=== PATIENT | female | born 1980 | race Caucasian/White ===

== ENCOUNTER 2017-02-21 12:06 | Observation (INO) | payer OTHER ==
[2017-02-21] MEDS ORDERED: Famotidine 20 MG/2 ML SDV IVPUSH ONE (12:10)
[2017-02-21] MEDS ORDERED: Ticagrelor 90 MG Tab PO ONE (12:10)
[2017-02-21] MEDS ORDERED: Aspirin 81 MG Tab.Chew CHEW ONE (12:10)
--- NOTE | 2017-02-21 12:10 | EDM.PDOC ---
ED HPI GENERAL MEDICAL PROBLEM - General Chief Complaint: Chest Pain Stated Complaint: chest pain Time Seen by Provider: 02/21/17 12:10 Source of Information: Reports: Patient, Family (), Old Records ([facility] chart/EMR) History Limitations: Reports: No Limitations - History of Present Illness INITIAL COMMENTS - FREE TEXT/NARRATIVE: The patient was brought to the emergency room via private automobile by her coworker for evaluation of sudden onset nonspecific 7/10 retrosternal chest pressure and burning associated with some mild dizziness, blurred vision, diaphoresis, and heart flutter with no medications taken to this point. Possible radiation of her chest discomfort to her cervical region bilaterally with patient also thinking that she may be having some heartburn. She has not had these symptoms in the past with no medications taken to this point for the symptoms, although she did take her morning medications today. Her GERD has been stable in recent weeks. No previous cardiac history including arrhythmia with patient not using any recent OTC cold or allergy preparations with no significant recent caffeine use as below. The patient denies any dizziness, orthostasis, orthopnea, paresthesias, recent decreased exercise tolerance, or any other anginal-type symptoms. No recent history of other abdominal pain, heartburn, nausea, diarrhea, melena, gross hematochezia, or any food intolerance , including fatty foods, etc. with normal bowel movement yesterday. The patient also denies any recent fever, cough, wheezing, dyspnea, etc.. She denies any recent medication noncompliance. The patient was at work essentially at rest when the above symptoms started with apparent similar type symptoms about one week ago lasting for about one hour. No history of recent headaches, other visual changes, diplopia, change in mental status, or other change in neurological status. Onset: Today, Sudden Onset Date: 02/21/17 Onset Time: 15:00 Duration: Constant Location: Reports: Neck, Chest, Abdomen, Radiates to (As above). Denies: Head, Face, Back, Pelvis, Upper Extremity, Left, Upper Extremity, Right Quality: Reports: Burning, Pressure Severity: Moderate Improves with: Reports: None Worsens with: Reports: None Context: Reports: Other (As above) Associated Symptoms: Reports: Chest Pain, Diaphoresis. 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 Denies: Cataract, Glaucoma, Hard of Hearing, Impaired Vision, Macular Degeneration, Retinal Detachment Cardiovascular History: Reports: High Cholesterol, Hypertension, Other (See Below). Denies: Afib, Aneurysm, Arrhythmia, Blood Clots/VTE/DVT, CAD, Heart Failure, Heart Murmur, [place], Syncope Other Cardiovascular History: Hyperlipidemia not currently under therapy Respiratory History: Reports: None. Denies: Asthma, Bronchitis, Recurrent, COPD , Intubation, Previous, PE, Pneumothorax, Sleep Apnea, TB Gastrointestinal History: Reports: None, GERD. Denies: Celiac Disease, Cholelithiasis, Chronic Constipation, Chronic Diarrhea, Gastritis, GI Bleed, Hemorrhoids, Hepatitis, Hiatal Hernia, Inflammatory Bowel Disease, Irritable Bowel Syndrome, Jaundice, Pancreatitis, PUD Genitourinary History: Reports: None. 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 Denies: Endometriosis , Fibroids, , Spontaneous : 0 LMP (Approximate): 1 Week Musculoskeletal History: Reports: None, Arthritis, Back Pain, Chronic, Osteoarthritis. Denies: Amputation, Fracture, Gout, Neck Pain, Chronic, RA, SLE Neurological History: Reports: None. Denies: Cerebral Aneurysms, Concussion, CVA, Headaches, Chronic, Head Trauma, Migraines, MS, Neuropathy, Diabetic, Neuropathy, Peripheral, Parkinson's, Seizure, TIA Psychiatric History: Reports: Anxiety, Depression, Other (See Below). Denies: Abuse, Victim of, ADD, ADHD, Addiction, Panic Attack, Psych Hospitalization(s), PTSD, Suicide Attempt, Suicidal Ideation Other Psychiatric History: Anxiety depression disorder not currently under therapy Endocrine/Metabolic History: Reports: Obesity/BMI 30+. Denies: Diabetes, Type I , Diabetes, Type II, Hypothyroidism, IDDM Hematologic History: Reports: None. Denies: Anemia, B12 Deficiency, Blood Transfusion(s), Iron Deficiency Immunologic History: Reports: None. Denies: AIDS, HIV, SLE Oncologic (Cancer) History: Reports: None. Denies: Basal Cell Carcinoma, Cervix , Hodgkin's Lymphoma, Leukemia, Lymphoma, Malignant Melanoma, Non-Hodgkin's Lymphoma, Squamous Cell Carcinoma Dermatologic History: Reports: None. Denies: Eczema, Psoriasis - Infectious Disease History Infectious Disease History: Reports: Chicken Pox. Denies: C-Difficile, Measles , Meningitis, Mononucleosis, MRSA, Mumps, Pertussis (Whooping Cough), Rubella, Scarlet Fever, Shingles, TB, VRE - Past Surgical History Head Surgeries/Procedures: Reports: None HEENT Surgical History: Reports: Oral Surgery, Other (See Below). Denies: Adenoidectomy, Eye Surgery, Laser Surgery, LASIK, Myringotomy w Tube(s), Naso- Sinus Surgery, Tonsillectomy Other HEENT Surgeries/Procedures: [place] teeth extraction x4 at age 8 Cardiovascular Surgical History: Reports: None. Denies: Varicose, Vascular Surgery Respiratory Surgical History: Reports: None. Denies: Lung Biopsies, Thoracentesis GI Surgical History: Reports: None. Denies: Appendectomy, Cholecystectomy, Colonoscopy, EGD, Hernia, Inguinal, Hernia Repair/Other Female Surgical History: Reports: None. Denies: Breast Biopsy, D&C, Hysterectomy, Tubal Ligation Endocrine Surgical History: Reports: None. Denies: Thyroid Biopsy Neurological Surgical History: Reports: None. Denies: C-Spine, Discectomy, Intracranial, Laminectomy, Lumbar Spine, Spinal Fusion, Vertebroplasty Musculoskeletal Surgical History: Reports: None. Denies: Arthroscopic Procedure , Carpal Tunnel, Ganglion Cyst, Joint Replacement, ORIF, Shoulder Surgery Oncologic Surgical History: Reports: None Dermatological Surgical History: Reports: None - Past Imaging History Past Imaging History: Reports: None. Denies: Cardiac Echo, Stress Testing Social & Family History - Family History HEENT: Reports: None. Denies: Allergic Rhinitis, Glaucoma, Macular Degeneration , Retinal Detachment Cardiac: Reports: Hypertension, Other (See Below). Denies: Afib, Aneurysm, Arrhythmia, Blood Clots/VTE/DVT, CAD, Heart Failure, Heart Murmur, High Cholesterol, [place], Pacemaker, PVD/COD, Syncope Other Cardiac Family History: Parents with hypertension Respiratory: Denies: Asthma, COPD, PE, Pneumothorax, Sleep Apnea GI: Reports: GERD, Other (See Below). Denies: Celiac Disease, Cholelithiasis, Colon Polyps, GI bleed, Inflammatory Bowel Disease, Irritable Bowel Syndrome, PUD Other GI Family History: Father with GERD : Reports: None. Denies: Dialysis, Renal Calculus, Renal Disease/ Insufficiency OBGYN: Reports: None. Denies: Dysfunctional uterine bleeding, Endometriosis, Recurrent Spontaneous Musculoskeletal: Reports: None. Denies: Arthritis, Gout, Osteoarthritis, RA Neurological: Reports: CVA, Other (See Below). Denies: Alzheimers Disease, Cerebral Aneurysms, Dementia, Migraines, MS, Parkinson's, Seizure, TIA Other Neurological Family History: Mother with small CVA in her 50s Psychiatric: Denies: Abuse, Victim of, ADD, ADHD, Anxiety, Depression, Psych Hospitalization(s), Psychosis, PTSD, Suicide Attempt Endocrine/Metabolic: Reports: Diabetes, type II, Hypothyroidism, Other (See Below). Denies: Diabetes, Type I, IDDM Other Endocrine/Metabolic Family History: Paternal grandmother with AODM, mother with hypothyroidism Hematologic: Reports: None. Denies: Anemia, Transfusion Reaction Immunologic: Reports: None. Denies: AIDS, HIV, SLE Dermatologic: Reports: None. Denies: Eczema, Psoriasis Oncologic: Reports: Lymphoma, Other (See Below). Denies: Breast, Cervix, Colon , Hodgkin's Lymphoma, Leukemia, Metastatic, Thyroid, Uterine Other Oncologic Family History: Mother with lymphoma in her 60s - Tobacco Use Smoking Status *Q: Never Smoker Smoking Cessation Information Provided To Patient: No Second Hand Smoke Exposure: No Second Hand Smoke Education Provided: No - Caffeine Use Caffeine Use: Reports: Soda (One soda per day). Denies: Coffee, Energy Drinks, Tea - Alcohol Use Alcohol Use History: Yes Days Per Week of Alcohol Use: 3 (No previous DWIs, problems with alcohol abuse, etc.) Number of Drinks Per Day: 6 (Usually beer) Total Drinks Per Week: 18 Date of Last Drink: 02/20/17 Alcohol Use in Last Twelve Months: Yes Alcohol Use Frequency: Socially - Recreational Drug Use Recreational Drug Use: No Drug Use in Last 12 Months: No Recreational Drug Type: Denies: Amphetamines (Speed), Cocaine, Heroin, Inhalants (Glues, Solvents, Aerosols), LSD (Acid), Marijuana/Hashish, Methamphetamine, Morphine - Sexual History Sexual History: Reports: Sexually Active - Living Situation & Occupation Living situation: Reports: (2006), with Family () 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 Denies: Fever, Chills, Night Sweats, Decreased Appetite, Weight Loss, Weight Gain HEENT: Reports: Vision Change. Denies: Contact Lenses, Dental Pain, Ear Discharge, Ear Pain, Glasses, Nosebleed, Vertigo Respiratory: Reports: No Symptoms. Denies: Shortness of Breath, Pleuritic Chest Pain, Cough Cardiovascular: Reports: Chest Pain, Blood Pressure Problem (Blood pressure 86/ 59 prior to arrival by her history with blood pressure taken at the pharmacy), Lightheadedness, Palpitations. Denies: Claudication, Dyspnea on Exertion, Edema , Orthopnea, PND, Syncope Endocrine: Reports: No Symptoms. Denies: Fatigue GI/Abdominal: Reports: Abdominal Pain (Possible heartburn). Denies: Anorexia, Black Stool, Bloody Stool, Constipation, Diarrhea, Decreased Appetite, Difficulty Swallowing, Distension, Flatus, Hematochezia, Melena, Nausea, Stool Incontinence, Vomiting : Reports: No Symptoms. Denies: Discharge, Dysuria, Flank Pain, Frequency, Hematuria, Incontinence, Irregular Menses, Pain, Urgency, Urinary Retention Musculoskeletal: Reports: Neck Pain (Possible as above). Denies: Shoulder Pain , Arm Pain, Back Pain, Leg Pain Skin: Reports: Diaphoresis. Denies: Pruritis, Rash, Wound Neurological: Reports: Dizziness. Denies: Confusion, Headache, Numbness, Paresthesia, Pre-Existing Deficit, Seizure, Syncope, Tingling, Tremors, Trouble Speaking, Difficulty Walking, Weakness, Gait Disturbance Psychiatric: Reports: No Symptoms. Denies: Agitation, Anxiety, Confusion, Depression, Hallucinations Hematologic/Lymphatic: Reports: No Symptoms Immunologic: Reports: No Symptoms ED EXAM, GENERAL - Physical Exam Exam: See Below Exam Limited By: No Limitations General Appearance: Alert, WD/WN, No Apparent Distress Eye Exam: Bilateral Eye: EOMI, Normal Inspection (No nystagmus), PERRL Ears: Normal External Exam, Normal Canal, Hearing Grossly Normal, Normal TMs Nose: Normal Inspection, Normal Mucosa, No Blood. No: Clear Rhinorrhea Throat/Mouth: Normal Inspection, Normal Lips, Normal Teeth, Normal Gums, Normal Oropharynx, Normal Voice, No Airway Compromise. No: Dysphagia Head: Atraumatic, Normocephalic. No: Facial Swelling, Facial Tenderness, Sinus Tenderness Neck: Normal Inspection, Supple, Non-Tender, Full Range of Motion. No: Carotid Bruit, Lymphadenopathy (L), Lymphadenopathy (R), Thyromegaly Respiratory/Chest: No Respiratory Distress, Lungs Clear, Normal Breath Sounds, No Accessory Muscle Use, Chest Non-Tender. No: Pleural Rub, Retractions Cardiovascular: No Edema, No Gallop, No JVD, No Murmur, No Rub, Tachycardia ( Regular rhythm). No: Gallop/S3, Gallop/S4, Friction Rub Peripheral Pulses: 2+: Radial (L), Radial (R), Dorsalis Pedis (L), Dorsalis Pedis (R) GI/Abdominal: Normal Bowel Sounds, Soft, Non-Tender, No Organomegaly, No Distention, No Abnormal Bruit, No Mass, Pelvis Stable, Other (obese). No: Guarding (Female) Exam: Deferred Rectal (Female) Exam: Heme - Stool Back Exam: Normal Inspection, Full Range of Motion. No: CVA Tenderness (L), CVA Tenderness (R), Muscle Spasm Extremities: Normal Inspection, Normal Range of Motion, Non-Tender, Normal Capillary Refill, Pedal Edema (Trace bilateral pedal/pretibial edema). No: Kristy's Sign Neurological: Alert, Oriented, CN II-XII Intact, Normal Cognition, Normal Gait, Normal Reflexes (Negative Babinski's), No Motor/Sensory Deficits Psychiatric: Normal Affect, Normal Mood Skin Exam: Warm, Dry, Intact, Normal Color, No Rash. No: Diaphoretic, Wound/ Incision Lymphatic: No Adenopathy EKG INTERPRETATION EKG Date: 02/21/17 Time: 12:39 Rhythm: other (Sinus tachycardia after IV therapy as below) Rate (beats/min): 125 [place]: normal (Left cardiac) P-wave: present QRS: normal (QRS interval of 0.08 seconds representing repolarization changes) ST-T: normal QT: normal CT/PQ Interval: 0.16 seconds with extreme poor R-wave progression in the anterior leads Comparison: NA - no prior EKG EKG Interpretation Comments: 1. No acute ischemic changes 2. Repolarization changes Course - Vital Signs Last Recorded V/S: Last Vital Signs Temp 36.2 C 02/21/17 12:56 Pulse 125 H 02/21/17 13:26 Resp 20 02/21/17 13:26 BP 114/69 02/21/17 13:26 Pulse Ox 100 02/21/17 13:26 Vital Signs - 24 hr 02/21/17 02/21/17 02/21/17 12:10 12:12 12:30 Temperature [ 36.3 C 36.3 C Oral] Pulse, Peripheral Pulse, 193 H 190 H 123 H Peripheral [ Right Pulse Oximetry] Respiratory 20 24 H Rate Blood Pressure Blood Pressure 81/38 L 81/38 L 81/52 L [Right Upper Arm] O2 Sat by Pulse 100 100 Oximetry O2 Sat by Pulse 100 Oximetry [ Nasal Cannula] 02/21/17 02/21/17 02/21/17 12:36 12:38 12:40 Temperature [ Oral] Pulse, 125 H Peripheral Pulse, 127 H 126 H Peripheral [ Right Pulse Oximetry] Respiratory 26 H Rate Blood Pressure 81/52 L Blood Pressure 100/77 113/69 [Right Upper Arm] O2 Sat by Pulse 100 Oximetry O2 Sat by Pulse Oximetry [ Nasal Cannula] 02/21/17 02/21/17 02/21/17 12:56 13:10 13:26 Temperature [ 36.2 C Oral] Pulse, Peripheral Pulse, 128 H 128 H 125 H Peripheral [ Right Pulse Oximetry] Respiratory 24 H 20 20 Rate Blood Pressure Blood Pressure 93/73 106/84 114/69 [Right Upper Arm] O2 Sat by Pulse 100 100 100 Oximetry O2 Sat by Pulse Oximetry [ Nasal Cannula] - Orders/Labs/Meds Orders: Active Orders 24 hr Category Date Time Status Cardiac Monitoring [RC] . DIRECTED Care 02/21/17 12:10 Active EKG Documentation Completion [RC] ASDIRECTED Care 02/21/17 12:10 Active Oxygen Therapy, ED [RC] CONTINUOUS Care 02/21/17 12:10 Active Pulse Oximetry [RC] CONTINUOUS Care 02/21/17 12:10 Active Up With Assistance [RC] PFP Care 02/21/17 12:10 Active Vital Signs [RC] PFP Care 02/21/17 12:10 Active Nothing per Oral Now Diet [DIET] Diet 02/21/17 Breakfast Active Chest 1V Frontal [CR] Stat Exams 02/21/17 12:10 Taken H PYLORI STOOL ANTIGEN [MREF] Stat Lab 02/21/17 12:10 Uncollected Sodium Chloride 0.9% [Saline Flush] Med 02/21/17 12:10 Active 10 ml FLUSH ASDIRECTED PRN Obtain Past Medical Record [OM.PC] Urgent Oth 02/21/17 12:10 Active Peripheral IV Insertion Adult [OM.PC] Stat Oth 02/21/17 12:10 Ordered Resuscitation Status Stat Resus Stat 02/21/17 12:10 Ordered Medication Orders Sodium Chloride (Saline Flush) 10 ml FLUSH ASDIRECTED PRN PRN Reason: Keep Vein Open Last Admin: 02/21/17 13:11 Dose: 10 ml Admin: 02/21/17 12:32 Dose: 10 ml Labs: Laboratory Tests 02/21/17 02/21/17 02/21/17 Range/Units 12:20 12:20 12:20 WBC 7.3 (4.0-10.2) K/uL RBC 4.35 (3.77-5.09) M/uL Hgb 13.7 (11.7-15.5) g/dL Hct 42.9 (34.0-46.0) % MCV 98.6 H (84.0-98.0) fL MCH 31.5 (28.2-33.3) pg MCHC 31.9 (31.7-36.0) g/dL RDW 12.3 (11.2-14.1) % Plt Count 252 (150-350) K/uL Neut % (Auto) 63.8 (45.0-80.0) % Lymph % (Auto) 28.6 (10.0-50.0) % [place] % (Auto) 5.8 (2.0-14.0) % Eos % (Auto) 1.1 (0.0-5.0) % Baso % (Auto) 0.7 (0.0-2.0) % Neut # (Auto) 4.65 (1.40-7.00) K/uL Lymph # (Auto) 2.08 (0.50-3.50) K/uL [place] # (Auto) 0.42 (0.00-1.00) K/uL Eos # (Auto) 0.08 (0.00-0.50) K/uL Baso # (Auto) 0.05 (0.00-0.20) K/uL PT 10.7 (9.8-11.7) SEC INR 1.0 APTT 28.2 (23.5-30.0) SEC D-Dimer, Quantitative 171 (0-400) ng/mL Sodium (136-145) mmol/L Potassium (3.5-5.1) mmol/L Chloride (98-107) mmol/L Carbon Dioxide (21.0-32.0) mmol/L BUN (7-18) mg/dL Creatinine (0.51-1.17) mg/dL Est Cr Clr Drug Dosing mL/min Estimated GFR (MDRD) mL/min Glucose (74-106) mg/dL Lactic Acid (0.4-2.0) mmol/L Uric Acid (2.6-7.2) mg/dL Calcium (8.5-10.1) mg/dL Magnesium (1.8-2.4) mg/dL Total Bilirubin (0.2-1.0) mg/dL AST (15-37) U/L ALT (12-78) U/L Alkaline Phosphatase (46-116) IU/L Creatine Kinase (26-308) U/L Creatine Kinase Index (0.0-2.5) % CK-MB (CK-2) (0.00-3.60) ng/mL Troponin I (0.000-0.056) ng/mL [id number] Pept (0-125) pg/mL Total Protein (6.4-8.2) g/dL Albumin (3.4-5.0) g/dL TSH, Ultra Sensitive (0.358-3.740) mIU/mL HCG, Qual (NEGATIVE) 02/21/17 02/21/17 02/21/17 Range/Units 12:20 12:20 12:20 WBC (4.0-10.2) K/uL RBC (3.77-5.09) M/uL Hgb (11.7-15.5) g/dL Hct (34.0-46.0) % MCV (84.0-98.0) fL MCH (28.2-33.3) pg MCHC (31.7-36.0) g/dL RDW (11.2-14.1) % Plt Count (150-350) K/uL Neut % (Auto) (45.0-80.0) % Lymph % (Auto) (10.0-50.0) % [place] % (Auto) (2.0-14.0) % Eos % (Auto) (0.0-5.0) % Baso % (Auto) (0.0-2.0) % Neut # (Auto) (1.40-7.00) K/uL Lymph # (Auto) (0.50-3.50) K/uL [place] # (Auto) (0.00-1.00) K/uL Eos # (Auto) (0.00-0.50) K/uL Baso # (Auto) (0.00-0.20) K/uL PT (9.8-11.7) SEC INR APTT (23.5-30.0) SEC D-Dimer, Quantitative (0-400) ng/mL Sodium 140 (136-145) mmol/L Potassium 4.7 (3.5-5.1) mmol/L Chloride 104 (98-107) mmol/L Carbon Dioxide 24.5 (21.0-32.0) mmol/L BUN 18 (7-18) mg/dL Creatinine 1.16 (0.51-1.17) mg/dL Est Cr Clr Drug Dosing 59.17 mL/min Estimated GFR (MDRD) 52 mL/min Glucose 126 H (74-106) mg/dL Lactic Acid 3.3 H (0.4-2.0) mmol/L Uric Acid 6.7 (2.6-7.2) mg/dL Calcium 9.4 (8.5-10.1) mg/dL Magnesium 2.0 (1.8-2.4) mg/dL Total Bilirubin 0.3 (0.2-1.0) mg/dL AST 17 (15-37) U/L ALT 32 (12-78) U/L Alkaline Phosphatase 94 (46-116) IU/L Creatine Kinase 51 (26-308) U/L Creatine Kinase Index 1.4 (0.0-2.5) % CK-MB (CK-2) 0.70 (0.00-3.60) ng/mL Troponin I 0.000 (0.000-0.056) ng/mL [id number]-Nwngcbfojsl Pept 35 (0-125) pg/mL Total Protein 7.3 (6.4-8.2) g/dL Albumin 4.3 (3.4-5.0) g/dL TSH, Ultra Sensitive 4.449 H (0.358-3.740) mIU/mL HCG, Qual Negative (NEGATIVE) Meds: Medications Generic Name Dose Route Start Last Admin Trade Name Freq PRN Reason Stop Dose Admin Sodium Chloride 10 ml 02/21/17 12:10 02/21/17 13:11 Saline Flush FLUSH 10 ml ASDIRECTED PRN Administration Keep Vein Open Discontinued Medications Generic Name Dose Route Start Last Admin Trade Name Freq PRN Reason Stop Dose Admin Aspirin 324 mg 02/21/17 12:10 02/21/17 12:18 Aspirin CHEW 02/21/17 12:11 324 mg ONETIME ONE Administration Diltiazem HCl 10 mg 02/21/17 12:11 02/21/17 12:22 Diltiazem IVPUSH 02/21/17 12:12 10 mg ONETIME ONE Administration Diltiazem HCl 10 mg 02/21/17 12:29 02/21/17 12:32 Diltiazem IVPUSH 02/21/17 12:30 10 mg ONETIME ONE Administration Diltiazem HCl 120 mg 02/21/17 12:29 02/21/17 12:36 Cardizem Cd PO 02/21/17 12:30 120 mg ONETIME ONE Administration Diltiazem HCl 15 mg 02/21/17 13:03 02/21/17 13:10 Diltiazem IVPUSH 02/21/17 13:04 15 mg ONETIME ONE Administration Famotidine 40 mg 02/21/17 12:10 02/21/17 12:20 Pepcid IVPUSH 02/21/17 12:11 40 mg ONETIME ONE Administration Ticagrelor 180 mg 02/21/17 12:10 02/21/17 12:20 Brilinta PO 02/21/17 12:11 180 mg ONETIME ONE Administration - Radiology Interpretation Free Text/Narrative:: awake overnight monitor showed PSVT with heart rate in the 190s prior to treatment as below with conversion to sinus rhythm with persistent sinus tachycardia in the 120s at time of admission. No extrasystoles or other arrhythmia noted Chest x-ray, portable, shows a poor inspiratory film with possible borderline pulmonary obstructive changes and pulmonary hypertension versus mild centralized CHF. No significant pulmonary infiltrates, cardiomegaly, pneumothorax, etc. Departure - Departure Time of Disposition: 13:55 Disposition: Refer to Observation Condition: good Clinical Impression: PSVT (paroxysmal supraventricular tachycardia), Peptic reflux disease, Hyperglycemia, Lactic acid blood increased, Mixed anxiety depressive disorder Hypertension Qualifiers: Hypertension type: essential hypertension Qualified Code(s): I10 - Essential ( primary) hypertension Hyperlipidemia Qualifiers: Hyperlipidemia type: unspecified Qualified Code(s): E78.5 - Hyperlipidemia, unspecified Hypothyroidism Qualifiers: Hypothyroidism type: acquired Qualified Code(s): E03.9 - Hypothyroidism, unspecified Osteoarthritis Qualifiers: Osteoarthritis location: multiple joints Osteoarthritis type: primary Qualified Code(s): M15.0 - Primary generalized (osteo)arthritis - Problem List & Annotations (1) PSVT (paroxysmal supraventricular tachycardia) SNOMED Code(s): 81247250 Code(s): I47.1 - SUPRAVENTRICULAR TACHYCARDIA Status: Acute Priority: High Current Visit: Yes Onset Date: 02/21/17 Annotation/Comment:: Chest pain protocol initiated upon patient's arrival to the emergency room. Secondary to her significant hypotension low-dose loading regimens of IV diltiazem were given with improvement prior to admission as above. Initiate standard rule out [place] orders with cardiology consultation depending on her clinical course. Probable echocardiogram prior to discharge with recommended Cardiolite stress test on an outpatient basis after discharge (2) Hyperglycemia SNOMED Code(s): 97250736 Code(s): R73.9 - HYPERGLYCEMIA, UNSPECIFIED Status: Acute Priority: Medium Current Visit: Yes Onset Date: 02/21/17 Annotation/Comment:: Glycosylated hemoglobin with next set of blood work (3) Hyperlipidemia SNOMED Code(s): 92854341 Code(s): E78.5 - HYPERLIPIDEMIA, UNSPECIFIED Status: Chronic Priority: Medium Current Visit: Yes Annotation/Comment:: Not currently under therapy with lipid panel in the a.m.. Qualifiers: Hyperlipidemia type: unspecified Qualified Code(s): E78.5 - Hyperlipidemia , unspecified (4) Hypertension SNOMED Code(s): 22291463 Code(s): I10 - ESSENTIAL (PRIMARY) HYPERTENSION Status: Acute Priority: High Current Visit: Yes Annotation/Comment:: History of hypertension under good control recently by her history, although note significant hypotension on arrival secondary to her tachycardia as above. Improved blood pressures prior to admission as above Qualifiers: Hypertension type: essential hypertension Qualified Code(s): I10 - Essential (primary) hypertension (5) Hypothyroidism SNOMED Code(s): 77649640 Code(s): E03.9 - HYPOTHYROIDISM, UNSPECIFIED Status: Acute Priority: Medium Current Visit: Yes Onset Date: 02/21/17 Annotation/Comment:: Mild TSH elevation. Consider Synthroid supplementation at discharge Qualifiers: Hypothyroidism type: acquired Qualified Code(s): E03.9 - Hypothyroidism, unspecified (6) Lactic acid blood increased SNOMED Code(s): 3716519 Code(s): R79.89 - OTHER SPECIFIED ABNORMAL FINDINGS OF BLOOD CHEMISTRY Status: Acute Priority: High Current Visit: Yes Onset Date: 02/21/17 Annotation/Comment:: Repeat lactic acid level with next set of blood work and also in the a.m.. No direct evidence of significant acidosis, sepsis, etc. (7) Mixed anxiety depressive disorder SNOMED Code(s): 271078273 Code(s): F41.8 - OTHER SPECIFIED ANXIETY DISORDERS Status: Chronic Priority: Medium Current Visit: Yes Annotation/Comment:: Stable by history with no current medical therapy. Continue to observe closely by her regular provider, Shane Abbott PA-C, at the [facility] in [place], (8) Osteoarthritis SNOMED Code(s): 180146067 Code(s): M19.90 - UNSPECIFIED OSTEOARTHRITIS, UNSPECIFIED SITE Status: Chronic Priority: Medium Current Visit: Yes Annotation/Comment:: Stable by history Qualifiers: Osteoarthritis location: multiple joints Osteoarthritis type: primary Qualified Code(s): M15.0 - Primary generalized (osteo)arthritis (9) Peptic reflux disease SNOMED Code(s): 08181271 Code(s): K21.9 - GASTRO-ESOPHAGEAL REFLUX DISEASE WITHOUT ESOPHAGITIS Status: Chronic Priority: Medium Current Visit: Yes Annotation/Comment:: Stable by history with patient given high-dose IV Pepcid as GI prophylaxis - Problem List Review Problem List Initiated/Reviewed/Updated: Yes - My Orders Last 24 Hours: My Active Orders 02/21/17 12:10 Cardiac Monitoring [RC] . DIRECTED EKG Documentation Completion [RC] ASDIRECTED Oxygen Therapy, ED [RC] CONTINUOUS Pulse Oximetry [RC] CONTINUOUS Up With Assistance [RC] PFP Vital Signs [RC] PFP Chest 1V Frontal [CR] Stat H PYLORI STOOL ANTIGEN [MREF] Stat Sodium Chloride 0.9% [Saline Flush] 10 ml FLUSH ASDIRECTED PRN Obtain Past Medical Record [OM.PC] Urgent Peripheral IV Insertion Adult [OM.PC] Stat Resuscitation Status Stat 02/21/17 Breakfast Nothing per Oral Now Diet [DIET] - Assessment/Plan Admission H&P: Please use this note as an admission H&P Last 24 Hours: My Active Orders 02/21/17 12:10 Cardiac Monitoring [RC] . DIRECTED EKG Documentation Completion [RC] ASDIRECTED Oxygen Therapy, ED [RC] CONTINUOUS Pulse Oximetry [RC] CONTINUOUS Up With Assistance [RC] PFP Vital Signs [RC] PFP Chest 1V Frontal [CR] Stat H PYLORI STOOL ANTIGEN [MREF] Stat Sodium Chloride 0.9% [Saline Flush] 10 ml FLUSH ASDIRECTED PRN Obtain Past Medical Record [OM.PC] Urgent Peripheral IV Insertion Adult [OM.PC] Stat Resuscitation Status Stat 02/21/17 Breakfast Nothing per Oral Now Diet [DIET] Assessment:: As above Plan: As above. Extensive precautions were given to the patient and her , who are in agreement with the treatment plan. The patient's condition is stable enough for observation status and general supervision.
[2017-02-21] MEDS ORDERED: Diltiazem 25 MG/5 ML SDV IVPUSH ONE ×3 (12:11→13:03)
[2017-02-21] MEDS ORDERED: Diltiazem 120 MG Cap.CD PO ONE (12:29)
[2017-02-21] MEDS: Sodium Chloride 0.9% 10 ML Syringe FLUSH PRN ×2 (12:32→13:11)
[2017-02-21] MEDS ORDERED: Temazepam 15 MG Cap PO PRN (14:00)
[2017-02-21] MEDS ORDERED: Sodium Chloride 0.9% 10 ML Syringe FLUSH PRN (14:00)
[2017-02-21] MEDS ORDERED: Acetaminophen 325 MG Tab PO PRN (14:00)
[2017-02-21] MEDS: Acetaminophen 650 MG Tab.ER PO SCH (17:44)
[2017-02-21] MEDS ORDERED: Metoprolol Succinate 25 MG Tab.ER PO SCH (20:35)
[2017-02-22] MEDS: Acetaminophen 650 MG Tab.ER PO SCH (07:26)
[2017-02-22] MEDS ORDERED: Levothyroxine 50 MCG Tab PO SCH (07:30)
[2017-02-22 07:55] LABS: CHLORIDE,CL 106 mmol/L (98-107); SODIUM,NA 141 mmol/L (136-145)
[2017-02-22] MEDS ORDERED: Diltiazem 180 MG Cap.CD PO SCH (08:00)
[2017-02-22] MEDS ORDERED: Diltiazem 120 MG Cap.CD PO SCH (08:00)
[2017-02-22] MEDS ORDERED: Lisinopril 20 MG Tab PO SCH ×2 (08:00→18:00)
--- NOTE | 2017-02-22 09:45 | PCM.DCSUM1 ---
Discharge Summary - Hospital Course HPI Initial Comments: See emergency room note/admission H&P Brief History: See emergency room note/admission H&P - Discharge Data Discharge Date: 02/22/17 Discharge Disposition: Home, Self-Care 01 Condition: Good - Discharge Diagnosis/Problem(s) (1) PSVT (paroxysmal supraventricular tachycardia) SNOMED Code(s): 33515509 ICD Code: I47.1 - SUPRAVENTRICULAR TACHYCARDIA Status: Acute Priority: High Current Visit: Yes Onset Date: 02/21/17 Problem Details: No recurrence of patient's symptoms after aggressive treatment in the emergency room. Patient with subsequent sinus tachycardia somewhat refractory to therapy with additional low-dose Toprol XL therapy initiated yesterday evening. Telemetry strip taken with ambulation with results as above. Secondary to persistent tachycardia with ambulation Toprol XL will be increased this PM when the patient is at home. Close follow-up with her regular provider in 2 days as per discharge instructions with pulse and blood pressure check with ambulation at that time. Consider increase of her Toprol-XL either at that time and/or add her official 1 week depending on her clinical course. Negative workup for acute ND with continuation of activity restrictions as per discharge instructions. Work excuse provided. Preliminary echocardiogram results as above with patient to be scheduled for a Cardiolite stress test with me in this facility by her regular provider once her blood pressures and heart rhythm has stabilized. Further cardiology consultation, event monitor, etc. depending on her clinical course. (2) Hyperglycemia SNOMED Code(s): 10693074 ICD Code: R73.9 - HYPERGLYCEMIA, UNSPECIFIED Status: Acute Priority: Medium Current Visit: Yes Onset Date: 02/21/17 Problem Details: Glycosylated hemoglobin normal yesterday with the patient counseled on low-fat, low-cholesterol diet prior to discharge. Weight loss in moderation encouraged with initiation of exercise program once her cardiac status has been determined (3) Hyperlipidemia SNOMED Code(s): 39631172 ICD Code: E78.5 - HYPERLIPIDEMIA, UNSPECIFIED Status: Chronic Priority: Medium Current Visit: Yes Problem Details: Not currently under therapy with lipid panel showing some moderate hyperlipidemia today. Initial trial with weight loss as above with consideration of statin therapy, if her cardiac workup proves positive. Close followup by her regular provider as per discharge instructions Qualifiers: Hyperlipidemia type: unspecified Qualified Code(s): E78.5 - Hyperlipidemia , unspecified (4) Hypertension SNOMED Code(s): 86254629 ICD Code: I10 - ESSENTIAL (PRIMARY) HYPERTENSION Status: Acute Priority: High Current Visit: Yes Problem Details: History of hypertension under good control recently by her history, although note elevated blood pressures during this hospitalization with multiple medication adjustments required. Previous significant hypotension on arrival to the emergency room secondary to her severe tachycardia resolved shortly after admission with no sequelae from her hypotension. admission as above Qualifiers: Hypertension type: essential hypertension Qualified Code(s): I10 - Essential (primary) hypertension (5) Hypothyroidism SNOMED Code(s): 79899817 ICD Code: E03.9 - HYPOTHYROIDISM, UNSPECIFIED Status: Acute Priority: Medium Current Visit: Yes Onset Date: 02/21/17 Problem Details: Mild TSH elevation. Synthroid supplementation initiated this morning with this be beneficial both for her anxiety depression disorder and obesity. TSH should be repeated in 4 weeks. Free T3 and free T4 to be conducted on this morning's blood specimen secondary to her tachycardia as above with send out laboratory. Vitamin B-12 level is normal with folic acid also a send out laboratory. Qualifiers: Hypothyroidism type: acquired Qualified Code(s): E03.9 - Hypothyroidism, unspecified (6) Lactic acid blood increased SNOMED Code(s): 7422765 ICD Code: R79.89 - OTHER SPECIFIED ABNORMAL FINDINGS OF BLOOD CHEMISTRY Status: Acute Priority: High Current Visit: Yes Onset Date: 02/21/17 Problem Details: Repeat lactic acid levels were normal with no direct evidence of significant acidosis, sepsis, etc. (7) Mixed anxiety depressive disorder SNOMED Code(s): 556590621 ICD Code: F41.8 - OTHER SPECIFIED ANXIETY DISORDERS Status: Chronic Priority: Medium Current Visit: Yes Problem Details: Stable by history with no current medical therapy. Continue to observe closely by her regular provider, Shane Abbott PA-C, at the [facility] in [place], (8) Osteoarthritis SNOMED Code(s): 471289598 ICD Code: M19.90 - UNSPECIFIED OSTEOARTHRITIS, UNSPECIFIED SITE Status: Chronic Priority: Medium Current Visit: Yes Problem Details: Stable by history Qualifiers: Osteoarthritis location: multiple joints Osteoarthritis type: primary Qualified Code(s): M15.0 - Primary generalized (osteo)arthritis (9) Peptic reflux disease SNOMED Code(s): 31320558 ICD Code: K21.9 - GASTRO-ESOPHAGEAL REFLUX DISEASE WITHOUT ESOPHAGITIS Status: Chronic Priority: Medium Current Visit: Yes Problem Details: Stable by history with patient given high-dose IV Pepcid as GI prophylaxis in the emergency room with additional high-dose oral Pepcid today. Continue twice a day Zantac at before. Hemoccult was negative with stool for H. pylori still pending. Further GI workup including possible EGD depending on her clinical course (10) First degree AV block SNOMED Code(s): 181201830 ICD Code: I44.0 - ATRIOVENTRICULAR BLOCK, FIRST DEGREE Status: Acute Priority: High Current Visit: Yes Onset Date: 02/22/17 Problem Details: Mild first degree AV block likely secondary to concomitant diltiazem and metoprolol therapy. Continue to observe closely. Cardiac workup as above - Patient Summary/Data Operative Procedure(s) Performed: None Complications: None Consults: None Labs Pending at D/C: Final report of echocardiogram. Free TSH, free T4, folic acid level, and stool for H. pylori are also pending Recommended Follow-up Testing/Procedures: As per discharge instructions Planned Operative Procedure(s) after DC: None Hospital Course: Patient was admitted to observation status on telemetry with negative workup for acute ND as above. Note resolution of previous severe PSVT and hypotension , although her sinus tachycardia and blood pressure did remain somewhat refractory to therapy with multiple medication adjustments required. No chest pain or anginal-type symptoms during this hospitalization. - Patient Instructions Diet: Heart Healthy Diet Activity: No Strenuous Activities (50% maximum exercise restriction and strict fall/injury precautions as discussed until your heart status has been clarified and you have been released by your regular providers) Driving: May Drive Today Showering/Bathing: May Shower Notify Provider of: Increased Pain, Nausea and/or Vomiting Other/Special Instructions: 1. Followup with your regular provider, Shane Abbott PA-C, at the [facility] in [place], in about one week for reevaluation of your blood pressure and heart rhythm with vital signs including blood pressure and pulse with ambulation recommended at that time. 2. Schedule Cardiolite stress test in this facility with me ZHEN thereafter, if your vital signs and heart rhythm are stable. 3. TSH should be repeated in 4 weeks with further medication adjustment as needed. 4. Work excuse- See Form. 5. Blood pressure and pulse check with ambulation at the [facility] in [place] in about 2 days with consideration of increase of your Toprol-XL therapy at that time per their instructions. 6. Recommend repeat lipid panel in about 3 months - Discharge Plan Prescriptions/Med Rec: Diltiazem [Cardizem CD] 180 mg PO DAILY #30 cap.cd Levothyroxine [Synthroid] 50 mcg PO ACBREAKFAST #60 tablet Metoprolol Succinate [Toprol XL] 50 mg PO QPM #30 tab.er Home Medications: Home Meds Acetaminophen [Tylenol Arthritis] 1 tab PO BID 02/21/17 [History] Cetirizine HCl [Zyrtec] 10 mg PO DAILY PRN 02/21/17 [History] Naproxen 1,000 mg PO ASDIRECTED 02/21/17 [History] Ranitidine [Zantac] 150 mg PO BID@1200,1800 02/21/17 [History] Acetaminophen [Tylenol] 650 mg PO Q4H PRN #100 tablet 02/22/17 [Rx] Diltiazem [Cardizem CD] 180 mg PO DAILY #30 cap.cd 02/22/17 [Rx] Levothyroxine [Synthroid] 50 mcg PO ACBREAKFAST #60 tablet 02/22/17 [Rx] Lisinopril [Prinivil] 20 mg PO QPM tablet 02/22/17 [Rx] Metoprolol Succinate [Toprol XL] 50 mg PO QPM #30 tab.er 02/22/17 [Rx] Patient Handouts: Paroxysmal Supraventricular Tachycardia, Faes-ls-Gbzb, Metoprolol extended-release tablets, Hypothyroidism, Echocardiogram, Levothyroxine oral capsules, Fat and Cholesterol Restricted Diet, Apsi-at-Logq, Diltiazem tablets Forms: ED Department Discharge, Return to Work/School Form Referrals: Shane Abbott PA [Primary Care Provider] - - Discharge Summary/Plan Comment DC Time >30 min.: Yes (Coordination of care) Discharge Summary/Plan Comment: As above. Extensive precautions were given to the patient, who is in agreement with the treatment plan. See Patient Instructions for further treatment and plan. - General Info Date of Service: 02/22/17 Admission Dx/Problem (Free Text: 1. PSVT 2. Hypotension Subjective Update: As above Functional Status: Reports: pain controlled, tolerating diet, ambulating, urinating. Denies: new symptoms, incentive spirometry Numeric/FACES Score: 0 - Review of Systems General: Reports: No Symptoms. Denies: Fever, Weakness, Fatigue, Malaise, Chills, Night Sweats, Appetite (Appetite good) HEENT: Reports: no symptoms. Denies: contact lenses, dysphasia, ear pain, eye pain, glasses, headaches, post nasal drip, sinus congestion, sore throat, rhinitis, visual changes Pulmonary: Reports: no symptoms. Denies: shortness of breath, pleuritic chest pain, cough, sputum, wheezing Cardiovascular: Reports: No Symptoms. Denies: Chest Pain, Palpitations, Dyspnea on Exertion, Orthopnea, PND, Edema, Lightheadedness Gastrointestinal: Reports: No symptoms, Other (Normal bowel movement yesterday) . Denies: Abdominal pain, Constipation, Decreased appetite, Diarrhea, Difficulty swallowing, Flatus, Hematochezia, Melena, Nausea, Vomiting Genitourinary: Reports: no symptoms. Denies: dysuria, frequency, burning, pain , urgency, incontinence, hematuria, retention, flank pain Musculoskeletal: Reports: no symptoms. Denies: neck pain, shoulder pain, arm pain, back pain, leg pain Skin: Reports: no symptoms. Denies: diaphoresis, bruising Neurological: Reports: No Symptoms. Denies: Confusion, Dizziness, Headache, Numbness, Paresthesia, Syncope, Tingling, Weakness Psychiatric: Reports: no symptoms. Denies: confusion, depression, anxiety, agitation, hallucinations - Patient Data Vitals - Most Recent: Last Vital Signs Temp 36.6 C 02/22/17 07:00 Pulse 93 02/22/17 07:00 Resp 20 02/22/17 07:00 BP 114/49 L 02/22/17 07:00 Pulse Ox 100 02/22/17 07:00 Weight - Most Recent: 121.109 kg I&O - Last 24 hours: Intake & Output 02/21/17 02/22/17 02/22/17 22:59 06:59 14:59 Intake Total 1220 0 200 Output Total 1400 300 Balance -180 -300 200 Imaging Impressions - Last 24 hrs: hospital monitor shows persistent sinus tachycardia initially in the 110s to 120s after admission with improvement of her heart rhythm to the 90s-100s at rest prior to discharge. Note mild sinus tachycardia with maximum heart rate of 126 with ambulation, however. No other ectopy or arrhythmia. No return of her PSVT Chest x-ray, portable, on 02/21/17 showed a poor inspiratory film with possible borderline pulmonary obstructive changes and pulmonary hypertension versus mild centralized CHF. No significant pulmonary infiltrates, cardiomegaly, pneumothorax, etc. Verbal report from quality control technician concerning echocardiogram conducted today. Hyperdynamic cardiac function secondary to mild sinus tachycardia in the 100s with no significant valvular disease, thrombosis, cardiac dysfunction, etc. and ejection fraction of 72% Lab Results - Last 24 hrs: Laboratory Results - last 24 hr 02/21/17 02/21/17 02/21/17 Range/Units 16:45 16:45 22:45 WBC (4.0-10.2) K/uL RBC (3.77-5.09) M/uL Hgb (11.7-15.5) g/dL Hct (34.0-46.0) % MCV (84.0-98.0) fL MCH (28.2-33.3) pg MCHC (31.7-36.0) g/dL RDW (11.2-14.1) % Plt Count (150-350) K/uL Neut % (Auto) (45.0-80.0) % Lymph % (Auto) (10.0-50.0) % Lee % (Auto) (2.0-14.0) % Eos % (Auto) (0.0-5.0) % Baso % (Auto) (0.0-2.0) % Neut # (Auto) (1.40-7.00) K/uL Lymph # (Auto) (0.50-3.50) K/uL Lee # (Auto) (0.00-1.00) K/uL Eos # (Auto) (0.00-0.50) K/uL Baso # (Auto) (0.00-0.20) K/uL Sodium (136-145) mmol/L Potassium (3.5-5.1) mmol/L Chloride (98-107) mmol/L Carbon Dioxide (21.0-32.0) mmol/L BUN (7-18) mg/dL Creatinine (0.51-1.17) mg/dL Est Cr Clr Drug Dosing mL/min Estimated GFR (MDRD) mL/min Glucose (74-106) mg/dL Lactic Acid 1.4 (0.4-2.0) mmol/L Calcium (8.5-10.1) mg/dL Total Bilirubin (0.2-1.0) mg/dL AST (15-37) U/L ALT (12-78) U/L Alkaline Phosphatase (46-116) IU/L Creatine Kinase 39 36 (26-308) U/L Creatine Kinase Index 1.5 1.7 (0.0-2.5) % CK-MB (CK-2) 0.60 0.60 (0.00-3.60) ng/mL Troponin I 0.002 0.000 (0.000-0.056) ng/mL Total Protein (6.4-8.2) g/dL Albumin (3.4-5.0) g/dL Triglycerides (30-150) mg/dL Cholesterol (100-200) mg/dL LDL Cholesterol, Calc (0-100) mg/dL HDL Cholesterol (40-60) mg/dL 02/22/17 02/22/17 02/22/17 Range/Units 07:00 07:00 07:00 WBC 5.9 (4.0-10.2) K/uL RBC 4.17 (3.77-5.09) M/uL Hgb 13.4 (11.7-15.5) g/dL Hct 40.9 (34.0-46.0) % MCV 98.1 H (84.0-98.0) fL MCH 32.1 (28.2-33.3) pg MCHC 32.8 (31.7-36.0) g/dL RDW 12.3 (11.2-14.1) % Plt Count 250 (150-350) K/uL Neut % (Auto) 64.4 (45.0-80.0) % Lymph % (Auto) 26.0 (10.0-50.0) % Lee % (Auto) 7.9 (2.0-14.0) % Eos % (Auto) 1.4 (0.0-5.0) % Baso % (Auto) 0.3 (0.0-2.0) % Neut # (Auto) 3.81 (1.40-7.00) K/uL Lymph # (Auto) 1.54 (0.50-3.50) K/uL Lee # (Auto) 0.47 (0.00-1.00) K/uL Eos # (Auto) 0.08 (0.00-0.50) K/uL Baso # (Auto) 0.02 (0.00-0.20) K/uL Sodium 141 (136-145) mmol/L Potassium 4.1 (3.5-5.1) mmol/L Chloride 106 (98-107) mmol/L Carbon Dioxide 25.3 (21.0-32.0) mmol/L BUN 13 (7-18) mg/dL Creatinine 0.80 (0.51-1.17) mg/dL Est Cr Clr Drug Dosing 85.80 mL/min Estimated GFR (MDRD) > 60 mL/min Glucose 108 H (74-106) mg/dL Lactic Acid 1.2 (0.4-2.0) mmol/L Calcium 8.7 (8.5-10.1) mg/dL Total Bilirubin 0.4 (0.2-1.0) mg/dL AST 16 (15-37) U/L ALT 27 (12-78) U/L Alkaline Phosphatase 83 (46-116) IU/L Creatine Kinase 29 (26-308) U/L Creatine Kinase Index 1.4 (0.0-2.5) % CK-MB (CK-2) 0.40 (0.00-3.60) ng/mL Troponin I 0.000 (0.000-0.056) ng/mL Total Protein 7.1 (6.4-8.2) g/dL Albumin 3.7 (3.4-5.0) g/dL Triglycerides 154 H (30-150) mg/dL Cholesterol 214 H (100-200) mg/dL LDL Cholesterol, Calc 127 H (0-100) mg/dL HDL Cholesterol 56 (40-60) mg/dL Laboratory Tests 02/21/17 02/21/17 02/21/17 Range/Units 12:20 12:20 12:20 WBC 7.3 (4.0-10.2) K/uL RBC 4.35 (3.77-5.09) M/uL Hgb 13.7 (11.7-15.5) g/dL Hct 42.9 (34.0-46.0) % MCV 98.6 H (84.0-98.0) fL MCH 31.5 (28.2-33.3) pg MCHC 31.9 (31.7-36.0) g/dL RDW 12.3 (11.2-14.1) % Plt Count 252 (150-350) K/uL Neut % (Auto) 63.8 (45.0-80.0) % Lymph % (Auto) 28.6 (10.0-50.0) % Lee % (Auto) 5.8 (2.0-14.0) % Eos % (Auto) 1.1 (0.0-5.0) % Baso % (Auto) 0.7 (0.0-2.0) % Neut # (Auto) 4.65 (1.40-7.00) K/uL Lymph # (Auto) 2.08 (0.50-3.50) K/uL Lee # (Auto) 0.42 (0.00-1.00) K/uL Eos # (Auto) 0.08 (0.00-0.50) K/uL Baso # (Auto) 0.05 (0.00-0.20) K/uL PT 10.7 (9.8-11.7) SEC INR 1.0 APTT 28.2 (23.5-30.0) SEC D-Dimer, Quantitative 171 (0-400) ng/mL Sodium (136-145) mmol/L Potassium (3.5-5.1) mmol/L Chloride (98-107) mmol/L Carbon Dioxide (21.0-32.0) mmol/L BUN (7-18) mg/dL Creatinine (0.51-1.17) mg/dL Est Cr Clr Drug Dosing mL/min Estimated GFR (MDRD) mL/min Glucose (74-106) mg/dL Hemoglobin A1c (4.3-5.7) % Lactic Acid (0.4-2.0) mmol/L Uric Acid (2.6-7.2) mg/dL Calcium (8.5-10.1) mg/dL Magnesium (1.8-2.4) mg/dL Total Bilirubin (0.2-1.0) mg/dL AST (15-37) U/L ALT (12-78) U/L Alkaline Phosphatase (46-116) IU/L Creatine Kinase (26-308) U/L Creatine Kinase Index (0.0-2.5) % CK-MB (CK-2) (0.00-3.60) ng/mL Troponin I (0.000-0.056) ng/mL Tbq-T-Ewnfcwkxhkd Pept (0-125) pg/mL Total Protein (6.4-8.2) g/dL Albumin (3.4-5.0) g/dL Triglycerides (30-150) mg/dL Cholesterol (100-200) mg/dL LDL Cholesterol, Calc (0-100) mg/dL HDL Cholesterol (40-60) mg/dL Vitamin B12 (193-986) pg/mL TSH, Ultra Sensitive (0.358-3.740) mIU/mL HCG, Qual (NEGATIVE) 02/21/17 02/21/17 02/21/17 Range/Units 12:20 12:20 12:20 WBC (4.0-10.2) K/uL RBC (3.77-5.09) M/uL Hgb (11.7-15.5) g/dL Hct (34.0-46.0) % MCV (84.0-98.0) fL MCH (28.2-33.3) pg MCHC (31.7-36.0) g/dL RDW (11.2-14.1) % Plt Count (150-350) K/uL Neut % (Auto) (45.0-80.0) % Lymph % (Auto) (10.0-50.0) % Lee % (Auto) (2.0-14.0) % Eos % (Auto) (0.0-5.0) % Baso % (Auto) (0.0-2.0) % Neut # (Auto) (1.40-7.00) K/uL Lymph # (Auto) (0.50-3.50) K/uL Lee # (Auto) (0.00-1.00) K/uL Eos # (Auto) (0.00-0.50) K/uL Baso # (Auto) (0.00-0.20) K/uL PT (9.8-11.7) SEC INR APTT (23.5-30.0) SEC D-Dimer, Quantitative (0-400) ng/mL Sodium 140 (136-145) mmol/L Potassium 4.7 (3.5-5.1) mmol/L Chloride 104 (98-107) mmol/L Carbon Dioxide 24.5 (21.0-32.0) mmol/L BUN 18 (7-18) mg/dL Creatinine 1.16 (0.51-1.17) mg/dL Est Cr Clr Drug Dosing 59.17 mL/min Estimated GFR (MDRD) 52 mL/min Glucose 126 H (74-106) mg/dL Hemoglobin A1c (4.3-5.7) % Lactic Acid 3.3 H (0.4-2.0) mmol/L Uric Acid 6.7 (2.6-7.2) mg/dL Calcium 9.4 (8.5-10.1) mg/dL Magnesium 2.0 (1.8-2.4) mg/dL Total Bilirubin 0.3 (0.2-1.0) mg/dL AST 17 (15-37) U/L ALT 32 (12-78) U/L Alkaline Phosphatase 94 (46-116) IU/L Creatine Kinase 51 (26-308) U/L Creatine Kinase Index 1.4 (0.0-2.5) % CK-MB (CK-2) 0.70 (0.00-3.60) ng/mL Troponin I 0.000 (0.000-0.056) ng/mL Ind-Y-Miebwiipaxk Pept 35 (0-125) pg/mL Total Protein 7.3 (6.4-8.2) g/dL Albumin 4.3 (3.4-5.0) g/dL Triglycerides (30-150) mg/dL Cholesterol (100-200) mg/dL LDL Cholesterol, Calc (0-100) mg/dL HDL Cholesterol (40-60) mg/dL Vitamin B12 (193-986) pg/mL TSH, Ultra Sensitive 4.449 H (0.358-3.740) mIU/mL HCG, Qual Negative (NEGATIVE) 02/21/17 02/21/17 02/21/17 Range/Units 12:20 16:45 16:45 WBC (4.0-10.2) K/uL RBC (3.77-5.09) M/uL Hgb (11.7-15.5) g/dL Hct (34.0-46.0) % MCV (84.0-98.0) fL MCH (28.2-33.3) pg MCHC (31.7-36.0) g/dL RDW (11.2-14.1) % Plt Count (150-350) K/uL Neut % (Auto) (45.0-80.0) % Lymph % (Auto) (10.0-50.0) % Lee % (Auto) (2.0-14.0) % Eos % (Auto) (0.0-5.0) % Baso % (Auto) (0.0-2.0) % Neut # (Auto) (1.40-7.00) K/uL Lymph # (Auto) (0.50-3.50) K/uL Lee # (Auto) (0.00-1.00) K/uL Eos # (Auto) (0.00-0.50) K/uL Baso # (Auto) (0.00-0.20) K/uL PT (9.8-11.7) SEC INR APTT (23.5-30.0) SEC D-Dimer, Quantitative (0-400) ng/mL Sodium (136-145) mmol/L Potassium (3.5-5.1) mmol/L Chloride (98-107) mmol/L Carbon Dioxide (21.0-32.0) mmol/L BUN (7-18) mg/dL Creatinine (0.51-1.17) mg/dL Est Cr Clr Drug Dosing mL/min Estimated GFR (MDRD) mL/min Glucose (74-106) mg/dL Hemoglobin A1c 5.2 (4.3-5.7) % Lactic Acid 1.4 (0.4-2.0) mmol/L Uric Acid (2.6-7.2) mg/dL Calcium (8.5-10.1) mg/dL Magnesium (1.8-2.4) mg/dL Total Bilirubin (0.2-1.0) mg/dL AST (15-37) U/L ALT (12-78) U/L Alkaline Phosphatase (46-116) IU/L Creatine Kinase 39 (26-308) U/L Creatine Kinase Index 1.5 (0.0-2.5) % CK-MB (CK-2) 0.60 (0.00-3.60) ng/mL Troponin I 0.002 (0.000-0.056) ng/mL Ejg-T-Wklqyfpjkal Pept (0-125) pg/mL Total Protein (6.4-8.2) g/dL Albumin (3.4-5.0) g/dL Triglycerides (30-150) mg/dL Cholesterol (100-200) mg/dL LDL Cholesterol, Calc (0-100) mg/dL HDL Cholesterol (40-60) mg/dL Vitamin B12 (193-986) pg/mL TSH, Ultra Sensitive (0.358-3.740) mIU/mL HCG, Qual (NEGATIVE) 02/21/17 02/22/17 02/22/17 Range/Units 22:45 07:00 07:00 WBC 5.9 (4.0-10.2) K/uL RBC 4.17 (3.77-5.09) M/uL Hgb 13.4 (11.7-15.5) g/dL Hct 40.9 (34.0-46.0) % MCV 98.1 H (84.0-98.0) fL MCH 32.1 (28.2-33.3) pg MCHC 32.8 (31.7-36.0) g/dL RDW 12.3 (11.2-14.1) % Plt Count 250 (150-350) K/uL Neut % (Auto) 64.4 (45.0-80.0) % Lymph % (Auto) 26.0 (10.0-50.0) % Lee % (Auto) 7.9 (2.0-14.0) % Eos % (Auto) 1.4 (0.0-5.0) % Baso % (Auto) 0.3 (0.0-2.0) % Neut # (Auto) 3.81 (1.40-7.00) K/uL Lymph # (Auto) 1.54 (0.50-3.50) K/uL Lee # (Auto) 0.47 (0.00-1.00) K/uL Eos # (Auto) 0.08 (0.00-0.50) K/uL Baso # (Auto) 0.02 (0.00-0.20) K/uL PT (9.8-11.7) SEC INR APTT (23.5-30.0) SEC D-Dimer, Quantitative (0-400) ng/mL Sodium 141 (136-145) mmol/L Potassium 4.1 (3.5-5.1) mmol/L Chloride 106 (98-107) mmol/L Carbon Dioxide 25.3 (21.0-32.0) mmol/L BUN 13 (7-18) mg/dL Creatinine 0.80 (0.51-1.17) mg/dL Est Cr Clr Drug Dosing 85.80 mL/min Estimated GFR (MDRD) > 60 mL/min Glucose 108 H (74-106) mg/dL Hemoglobin A1c (4.3-5.7) % Lactic Acid (0.4-2.0) mmol/L Uric Acid (2.6-7.2) mg/dL Calcium 8.7 (8.5-10.1) mg/dL Magnesium (1.8-2.4) mg/dL Total Bilirubin 0.4 (0.2-1.0) mg/dL AST 16 (15-37) U/L ALT 27 (12-78) U/L Alkaline Phosphatase 83 (46-116) IU/L Creatine Kinase 36 29 (26-308) U/L Creatine Kinase Index 1.7 1.4 (0.0-2.5) % CK-MB (CK-2) 0.60 0.40 (0.00-3.60) ng/mL Troponin I 0.000 0.000 (0.000-0.056) ng/mL Wnt-Z-Oalbqameybg Pept (0-125) pg/mL Total Protein 7.1 (6.4-8.2) g/dL Albumin 3.7 (3.4-5.0) g/dL Triglycerides 154 H (30-150) mg/dL Cholesterol 214 H (100-200) mg/dL LDL Cholesterol, Calc 127 H (0-100) mg/dL HDL Cholesterol 56 (40-60) mg/dL Vitamin B12 (193-986) pg/mL TSH, Ultra Sensitive (0.358-3.740) mIU/mL HCG, Qual (NEGATIVE) 02/22/17 02/22/17 Range/Units 07:00 07:00 WBC (4.0-10.2) K/uL RBC (3.77-5.09) M/uL Hgb (11.7-15.5) g/dL Hct (34.0-46.0) % MCV (84.0-98.0) fL MCH (28.2-33.3) pg MCHC (31.7-36.0) g/dL RDW (11.2-14.1) % Plt Count (150-350) K/uL Neut % (Auto) (45.0-80.0) % Lymph % (Auto) (10.0-50.0) % Lee % (Auto) (2.0-14.0) % Eos % (Auto) (0.0-5.0) % Baso % (Auto) (0.0-2.0) % Neut # (Auto) (1.40-7.00) K/uL Lymph # (Auto) (0.50-3.50) K/uL Lee # (Auto) (0.00-1.00) K/uL Eos # (Auto) (0.00-0.50) K/uL Baso # (Auto) (0.00-0.20) K/uL PT (9.8-11.7) SEC INR APTT (23.5-30.0) SEC D-Dimer, Quantitative (0-400) ng/mL Sodium (136-145) mmol/L Potassium (3.5-5.1) mmol/L Chloride (98-107) mmol/L Carbon Dioxide (21.0-32.0) mmol/L BUN (7-18) mg/dL Creatinine (0.51-1.17) mg/dL Est Cr Clr Drug Dosing mL/min Estimated GFR (MDRD) mL/min Glucose (74-106) mg/dL Hemoglobin A1c (4.3-5.7) % Lactic Acid 1.2 (0.4-2.0) mmol/L Uric Acid (2.6-7.2) mg/dL Calcium (8.5-10.1) mg/dL Magnesium (1.8-2.4) mg/dL Total Bilirubin (0.2-1.0) mg/dL AST (15-37) U/L ALT (12-78) U/L Alkaline Phosphatase (46-116) IU/L Creatine Kinase (26-308) U/L Creatine Kinase Index (0.0-2.5) % CK-MB (CK-2) (0.00-3.60) ng/mL Troponin I (0.000-0.056) ng/mL Ohl-[id number] Pept (0-125) pg/mL Total Protein (6.4-8.2) g/dL Albumin (3.4-5.0) g/dL Triglycerides (30-150) mg/dL Cholesterol (100-200) mg/dL LDL Cholesterol, Calc (0-100) mg/dL HDL Cholesterol (40-60) mg/dL Vitamin B12 403 (193-986) pg/mL TSH, Ultra Sensitive (0.358-3.740) mIU/mL HCG, Qual (NEGATIVE) KIM Results - Last 24 hrs: Microbiology 02/21/17 23:30 Stool / Feces Stool Occult Blood (KIM) - Final NEGATIVE OCCULT BLOOD Stool for H. pylori antigen still pending Med Orders - Current: Current Medications Acetaminophen (Tylenol Arthritis Pain) 650 mg PO BID [facility] Last Admin: 02/22/17 07:26 Dose: 650 mg Acetaminophen (Tylenol) 650 mg PO Q4H PRN PRN Reason: Pain Last Admin: 02/22/17 00:16 Dose: 650 mg Diltiazem HCl (Cardizem Cd) 180 mg PO DAILY [facility] Last Admin: 02/22/17 07:27 Dose: 180 mg Levothyroxine Sodium (Synthroid) 50 mcg PO ACBREAKFAST [facility] Last Admin: 02/22/17 07:26 Dose: 50 mcg Lisinopril (Prinivil) 20 mg PO QPM [facility] Metoprolol Succinate (Toprol Xl) 25 mg PO QPM [facility] Last Admin: 02/21/17 21:01 Dose: 25 mg Sodium Chloride (Saline Flush) 10 ml FLUSH ASDIRECTED PRN PRN Reason: Keep Vein Open Last Admin: 02/21/17 13:11 Dose: 10 ml Sodium Chloride (Saline Flush) 10 ml FLUSH Q12HR PRN PRN Reason: Keep Vein Open Temazepam (Restoril) 15 mg PO BEDTIME PRN PRN Reason: Insomnia Last Admin: 02/22/17 00:17 Dose: 15 mg Discontinued Medications Aspirin (Aspirin) 324 mg CHEW ONETIME ONE Stop: 02/21/17 12:11 Last Admin: 02/21/17 12:18 Dose: 324 mg Diltiazem HCl (Diltiazem) 10 mg IVPUSH ONETIME ONE Stop: 02/21/17 12:12 Last Admin: 02/21/17 12:22 Dose: 10 mg Diltiazem HCl (Diltiazem) 10 mg IVPUSH ONETIME ONE Stop: 02/21/17 12:30 Last Admin: 02/21/17 12:32 Dose: 10 mg Diltiazem HCl (Cardizem Cd) 120 mg PO ONETIME ONE Stop: 02/21/17 12:30 Last Admin: 02/21/17 12:36 Dose: 120 mg Diltiazem HCl (Diltiazem) 15 mg IVPUSH ONETIME ONE Stop: 02/21/17 13:04 Last Admin: 02/21/17 13:10 Dose: 15 mg Diltiazem HCl (Cardizem Cd) 120 mg PO DAILY BEAU Famotidine (Pepcid) 40 mg IVPUSH ONETIME ONE Stop: 02/21/17 12:11 Last Admin: 02/21/17 12:20 Dose: 40 mg Lisinopril (Prinivil) 20 mg PO QAM BEAU Ticagrelor (Brilinta) 180 mg PO ONETIME ONE Stop: 02/21/17 12:11 Last Admin: 02/21/17 12:20 Dose: 180 mg - Exam Quality Assessment: Reports: supplemental oxygen, DVT prophylaxis. Denies: urine catheter, skin breakdown, restraints General: Reports: alert, oriented, cooperative, no acute distress HEENT: Reports: Pupils equal, Pupils reactive, EOMI, Mucous membr. moist/pink Neck: Reports: supple, trachea midline, no JVD, no thyromegaly, +2 carotid pulse wo bruit. Denies: lymphadenopathy Lungs: Reports: Clear to auscultation, Normal respiratory effort. Denies: Rub Cardiovascular: Reports: Regular Rate, Regular Rhythm, No Murmurs. Denies: Gallops, Rubs Abdomen: Reports: bowel sounds present, soft, no tenderness, no distension, other (Obese). Denies: guarding, CVA tenderness (Female) Exam: Deferred Rectal (Female) Exam: Deferred Back Exam: Reports: Normal Inspection, Full Range of Motion. Denies: CVA Tenderness (L), CVA Tenderness (R), Muscle Spasm Extremities: Reports: no edema, normal pulses, no tenderness/swelling, no calf tenderness Skin: Reports: warm, dry, intact. Denies: ecchymosis Neurological: Reports: no new focal deficit Psy/Mental Status: Reports: alert, normal affect, normal mood. Denies: agitated , hallucinations EKG INTERPRETATION EKG Date: 02/22/17 Time: 07:34 Rhythm: NSR Rate (beats/min): 95 [place]: normal (Neutral cardiac axis) P-wave: enlarged (Mild to moderate diffuse biphasic P waves with severe poor R- wave progression in the anterior leads) QRS: normal (QRS interval of 0.08 seconds representing repolarization changes with new T wave inversion in lead V1) ST-T: normal QT: normal AR/PQ Interval: 0.21 seconds representing a new first degree AV block Comparison: change from previous EKG (As above since 02/21/17) EKG Interpretation Comments: 1. No acute ischemic changes 2. New first degree AV block *Q Meaningful Use (DIS) - VTE *Q VTE Criteria *Q: - Stroke *Q Stroke Criteria *Q: - AMI *Q AMI Criteria *Q:
[2017-02-22] MEDS ORDERED: Famotidine 20 MG Tab PO ONE (10:37)
[2017-02-22 12:39] VITALS: BP 133/91
== END 2017-02-22 17:32 | disposition home or self-care (01) ==
LOC: SUPCPDRO 12:06 → LL.ED 12:06 → LL.MS 13:45
PROVIDERS: ADMIT Family Medicine; ATTEND Family Medicine
DX: I47.1 Supraventricular tachycardia (principal); R73.9 Hyperglycemia, unspecified; E78.5 Hyperlipidemia, unspecified; I10 Essential (primary) hypertension; E03.9 Hypothyroidism, unspecified; R79.89 Other specified abnormal findings of blood chemistry; F41.8 Other specified anxiety disorders; M15.0 Primary generalized (osteo)arthritis; K21.9 Gastro-esophageal reflux disease without esophagitis; I44.0 Atrioventricular block, first degree; Z79.899 Other long term (current) drug therapy; Z88.8 Allergy status to other drugs, medicaments and biological substances; Z98.890 Other specified postprocedural states
CPT/HCPCS: 36415; 71010; 80053; 80061; 82272; 82550; 82553; 82607; 83036; 83605; 83735; 83880; 84439; 84443; 84481; 84484; 84550; 84703; 85025; 85379; 85610; 85730; 87338; 93005; 93306; 96374; 96375; 96376; 99285; A9270; G0378; J7050; J3490; S0028

== ENCOUNTER 2019-05-09 14:21 | Inpatient (IN) | payer OTHER ==
[2019-05-09] MEDS ORDERED: Sodium Chloride 0.9% 1,000 ML IV SCH (15:00)
[2019-05-09 15:02] LABS: CHLORIDE,CL 102 mmol/L (98-107); SODIUM,NA 140 mmol/L (136-145)
--- NOTE | 2019-05-09 15:07 | PCM.SN ---
- Free Text/Narrative Note: 05-09-19 Anthony Shirley PA-C Pt. initially evaluated at [facility] for 9-day h/o abdominal pain, N/V/D. She is dehydrated and weak, unable to take oral nutrition at home, and admitted for OP IV fluids and Zofran, while labs are pending. In the clinic she said she did not want to stay overnight, but I will still consider this depending on labs and condition with IV fluids and Zofran.
[2019-05-09] MEDS: Ondansetron 4 MG/2 ML SDV IVPUSH PRN ×2 (15:08→18:50)
[2019-05-09] MEDS ORDERED: Sodium Chloride 0.9% 10 ML Syringe FLUSH PRN (16:11)
--- NOTE | 2019-05-09 16:54 | PCM.HP.2 ---
H&P History of Present Illness - General Date of Service: 05/09/19 Admit Problem/Dx: Admission Diagnosis/Problem Admission Diagnosis/Problem Abdominal pain Source of Information: Patient History Limitations: Reports: No Limitations - History of Present Illness Initial Comments - Free Text/Narative: Initially evaluated at [facility] for 9-day h/o abdominal pain, N/V/D with development of significant weakness, anorexia, headache and fatigue. Hypokalemic with K+ 3.0. Very poor oral intake, not wanting to eat or drink anything. Afebrile in the clinic with h/o fever at home by sensation, not checked with thermometer. Symptom Onset Date: 04/30/19 Duration of Symptoms: Reports: Day(s): Location: Reports: Abdomen (pain, N/V/D, anorexia), Generalized (weakness, fatigue) Improves with: Reports: None Worsens with: Reports: Eating, Movement Associated Symptoms: Reports: Headaches, Loss of Appetite, Malaise, Nausea/ Vomiting, Weakness Abdomen Pain Score (Numeric/FACES): 6 - Related Data Allergies/Adverse Reactions: Allergies Allergy/AdvReac Type Severity Reaction Status Date / Time codeine Allergy racing Verified 05/09/19 14:48 [From Tylenol-Codeine #3] heart Home Medications: Home Meds Acetaminophen [Tylenol] 650 mg PO Q4H PRN #100 tablet 02/22/17 [Rx] Levothyroxine [Synthroid] 50 mcg PO ACBREAKFAST #60 tablet 02/22/17 [Rx] Lisinopril [Prinivil] 20 mg PO QPM tablet 02/22/17 [Rx] Aspirin [Halfprin] 1 tab PO DAILY 05/09/19 [History] Atenolol 100 mg PO DAILY 05/09/19 [History] Baclofen 10 mg PO TID PRN 05/09/19 [History] Chlorthalidone 0.5 mg PO Q2D 05/09/19 [History] Naproxen 1 tab PO BIDMEALS 05/09/19 [History] Omeprazole 40 mg PO DAILY 05/09/19 [History] Pravastatin [Pravachol] 1 tab PO BEDTIME 05/09/19 [History] traZODone HCl [Trazodone HCl] 50 mg PO BEDTIME 05/09/19 [History] Past Medical History HEENT History: Reports: Allergic Rhinitis Cardiovascular History: Reports: High Cholesterol, Hypertension, Other (See Below) Other Cardiovascular History: Hyperlipidemia not currently under therapy Respiratory History: Reports: None Gastrointestinal History: Reports: None, GERD Genitourinary History: Reports: None LOT BOSS History: Reports: Dysfunctional Uterine Bleeding LMP (Approximate): 1 Week Other OB/BYN History: Nulliparous, h/o Infertility by definition Musculoskeletal History: Reports: None, Arthritis, Back Pain, Chronic, Osteoarthritis Neurological History: Reports: None Psychiatric History: Reports: Anxiety, Depression, Other (See Below) Other Psychiatric History: Anxiety depression disorder not currently under therapy Endocrine/Metabolic History: Reports: Obesity/BMI 30+ Hematologic History: Reports: None Immunologic History: Reports: None Oncologic (Cancer) History: Reports: None Dermatologic History: Reports: None - Infectious Disease History Infectious Disease History: Reports: Chicken Pox - Past Surgical History Head Surgeries/Procedures: Reports: None HEENT Surgical History: Reports: Oral Surgery, Other (See Below) Other HEENT Surgeries/Procedures: [place] teeth extraction x4 at age 8 Cardiovascular Surgical History: Reports: None Respiratory Surgical History: Reports: None GI Surgical History: Reports: None Female Surgical History: Reports: None Endocrine Surgical History: Reports: None Neurological Surgical History: Reports: None Musculoskeletal Surgical History: Reports: None Oncologic Surgical History: Reports: None Dermatological Surgical History: Reports: None - Past Imaging History Past Imaging History: Reports: None. Denies: Cardiac Echo, Stress Testing Social & Family History - Family History HEENT: Reports: None Cardiac: Reports: Hypertension, Other (See Below) Other Cardiac Family History: Parents with hypertension GI: Reports: GERD, Other (See Below) Other GI Family History: Father with GERD : Reports: None, Dialysis (Mother on peritoneal dialysis for renal failure), Renal Disease/Insufficiency OBGYN: Reports: None Musculoskeletal: Reports: None Neurological: Reports: CVA, Other (See Below) Other Neurological Family History: Mother with small CVA in her 50s Endocrine/Metabolic: Reports: Diabetes, type II, Hypothyroidism, Other (See Below) Other Endocrine/Metabolic Family History: Paternal grandmother with AODM, mother with hypothyroidism Hematologic: Reports: None Immunologic: Reports: None Dermatologic: Reports: None Oncologic: Reports: Lymphoma, Other (See Below) Other Oncologic Family History: Mother with lymphoma in her 60s - Caffeine Use Caffeine Use: Reports: Soda (One soda per day). Denies: Coffee, Energy Drinks, Tea - Alcohol Use Alcohol Use in Last Twelve Months: Yes - Recreational Drug Use Recreational Drug Use: No - Sexual History Sexual History: Reports: Sexually Active - Living Situation & Occupation Living situation: Reports: (2006), with Family () Occupation: Employed ([employer]) H&P Review of Systems - Review of Systems: Review Of Systems: ROS reveals no pertinent complaints other than HPI. Exam - Exam Exam: See Below - Vital Signs Vital Signs: Last Vital Signs Temp 97.7 F 05/09/19 14:25 Pulse 101 H 05/09/19 14:25 Resp 17 05/09/19 14:25 BP 111/61 05/09/19 14:25 Pulse Ox 98 05/09/19 14:25 Weight: 245 lb - Exam General: Alert, Oriented, Moderate Distress HEENT: Conjunctiva Clear, EACs Clear, EOMI, Hearing Intact, Posterior Pharynx Clear (oral MM very dry), Pupils Equal, Pupils Reactive Neck: Supple, Trachea Midline, 2 Lungs: Clear to Auscultation, Normal Respiratory Effort Cardiovascular: Regular Rate, Regular Rhythm GI/Abdominal Exam: Soft, No Organomegaly, No Mass, Distended (softly), Tender ( generalized tenderness, no acute focal tenderness), Abnormal Bowel Sounds ( hyperactive) (Female) Exam: Deferred Rectal (Female) Exam: Deferred Back Exam: Normal Inspection Extremities: Normal Inspection, No Pedal Edema Skin: Warm, Dry, Intact Neurological: Cranial Nerves Intact Neuro Extensive - Mental Status: Alert, Oriented x3, Normal Cognition, Memory Intact Psychiatric: Alert, Anxious - Patient Data Lab Results Last 24 hrs: Laboratory Results - last 24 hr 05/09/19 05/09/19 Range/Units 14:30 14:30 WBC 5.8 (4.0-10.2) K/uL RBC 3.98 (3.77-5.09) M/uL Hgb 13.3 (11.7-15.5) g/dL Hct 39.1 (34.0-46.0) % MCV 98.2 H (84.0-98.0) fL MCH 33.4 H (28.2-33.3) pg MCHC 34.0 (31.7-36.0) g/dL RDW 12.1 (11.2-14.1) % Plt Count 305 (150-350) K/uL Neut % (Auto) 55.3 (45.0-80.0) % Lymph % (Auto) 27.9 (10.0-50.0) % [place] % (Auto) 15.2 H (2.0-14.0) % Eos % (Auto) 1.4 (0.0-5.0) % Baso % (Auto) 0.2 (0.0-2.0) % Neut # (Auto) 3.21 (1.40-7.00) K/uL Lymph # (Auto) 1.62 (0.50-3.50) K/uL [place] # (Auto) 0.88 (0.00-1.00) K/uL Eos # (Auto) 0.08 (0.00-0.50) K/uL Baso # (Auto) 0.01 (0.00-0.20) K/uL Sodium 140 (136-145) mmol/L Potassium 3.0 L (3.5-5.1) mmol/L Chloride 102 (98-107) mmol/L Carbon Dioxide 29.3 (21.0-32.0) mmol/L BUN 16 (7-18) mg/dL Creatinine 1.05 (0.51-1.17) mg/dL Est Cr Clr Drug Dosing TNP Estimated GFR (MDRD) 58 mL/min Glucose 93 (74-106) mg/dL Calcium 9.2 (8.5-10.1) mg/dL Total Bilirubin 0.3 (0.2-1.0) mg/dL AST 15 (15-37) U/L ALT 31 (12-78) U/L Alkaline Phosphatase 98 (46-116) IU/L C-Reactive Protein 11.9 H (<=0.9) mg/dL Total Protein 7.4 (6.4-8.2) g/dL Albumin 3.2 L (3.4-5.0) g/dL Amylase 56 (25-115) U/L Lipase 197 (73-393) U/L Result Diagrams: 05/09/19 14:30 05/09/19 14:30 - Problem List (1) Abdominal pain SNOMED Code(s): 21982166 ICD Code: R10.9 - UNSPECIFIED ABDOMINAL PAIN Status: Acute Priority: High Current Visit: Yes Onset Date: ~04/30/19 Qualifiers: Abdominal location: generalized Qualified Code(s): R10.84 - Generalized abdominal pain (2) Diarrhea SNOMED Code(s): 12266220 ICD Code: R19.7 - DIARRHEA, UNSPECIFIED Status: Acute Priority: High Current Visit: Yes Onset Date: ~04/30/19 Problem Details: multiple loose stools each day Qualifiers: Diarrhea type: unspecified type Qualified Code(s): R19.7 - Diarrhea, unspecified (3) Nausea & vomiting SNOMED Code(s): 31632783 ICD Code: R11.2 - NAUSEA WITH VOMITING, UNSPECIFIED Status: Acute Priority: High Current Visit: Yes Onset Date: ~04/30/19 Problem Details: Severe nausea started 9 days ago but vomiting just started yesterday. Qualifiers: Vomiting Intractability: unspecified (4) Weakness SNOMED Code(s): 28645042 ICD Code: R53.1 - WEAKNESS Status: Acute Priority: Medium Current Visit : Yes Problem Details: secondary to dehydration (5) Hypokalemia due to excessive gastrointestinal loss of potassium SNOMED Code(s): 39256487 ICD Code: E87.6 - HYPOKALEMIA Status: Acute Priority: Medium Current Visit: Yes Onset Date: ~05/09/19 (6) Dehydration SNOMED Code(s): 64957982 ICD Code: E86.0 - DEHYDRATION Status: Acute Priority: High Current Visit: Yes Problem Details: secondary to abdominal pain, N/V/D and anorexia Problem List Initiated/Reviewed/Updated: Yes Orders Last 24hrs: Active Orders 24 hr Category Date Time Status Patient Status [ADT] Routine ADT 05/09/19 16:35 Ordered Antiembolic Devices [RC] PER UNIT ROUTINE Care 05/09/19 16:38 Ordered Height and Weight [RC] DAILY Care 05/09/19 16:35 Ordered Intake and Output [RC] QSHIFT Care 05/09/19 16:37 Ordered Oxygen Therapy [RC] PRN Care 05/09/19 16:35 Ordered Peripheral IV Care [RC] . DIRECTED Care 05/09/19 16:11 Active Up With Assistance [RC] ASDIRECTED Care 05/09/19 16:35 Ordered VTE/DVT Education [RC] PER UNIT ROUTINE Care 05/09/19 16:35 Ordered Vital Signs [RC] Q4HWA Care 05/09/19 16:35 Ordered Clear Liquid Diet [DIET] Diet 05/09/19 Dinner Ordered Abdomen 2V AP Flat Upright [CR] Routine Exams 05/09/19 14:15 Taken C-REACTIVE PROTEIN [CHEM] AM Lab 05/10/19 05:11 Ordered C-REACTIVE PROTEIN [CHEM] AM Lab 05/11/19 05:11 Ordered C-REACTIVE PROTEIN [CHEM] AM Lab 05/12/19 05:11 Ordered C-REACTIVE PROTEIN [CHEM] AM Lab 05/13/19 05:11 Ordered CBC WITH AUTO DIFF [HEME] AM Lab 05/10/19 05:11 Ordered CBC WITH AUTO DIFF [HEME] AM Lab 05/11/19 05:11 Ordered CBC WITH AUTO DIFF [HEME] AM Lab 05/12/19 05:11 Ordered CBC WITH AUTO DIFF [HEME] AM Lab 05/13/19 05:11 Ordered COMPREHENSIVE METABOLIC PN,CMP [CHEM] AM Lab 05/10/19 05:11 Ordered COMPREHENSIVE METABOLIC PN,CMP [CHEM] AM Lab 05/11/19 05:11 Ordered COMPREHENSIVE METABOLIC PN,CMP [CHEM] AM Lab 05/12/19 05:11 Ordered COMPREHENSIVE METABOLIC PN,CMP [CHEM] AM Lab 05/13/19 05:11 Ordered ROTAVIRUS ANTIGEN [MREF] Routine Lab 05/09/19 14:56 Ordered STOOL CULTURE [MREF] Routine Lab 05/09/19 14:55 Ordered URINALYSIS W/MICROSCOPIC [UA W/MICROSCOPIC] [URIN] Lab 05/09/19 14:54 Ordered Routine Ondansetron [Zofran] Med 05/09/19 14:53 Active 4 mg IVPUSH Q4H PRN Potassium Chloride [KCl 10 MEQ in Water 50 ML] 10 meq Med 05/09/19 16:45 Ordered Premix Bag 1 bag IV Q1H Sodium Chloride 0.9% @ 125 MLS/HR (1000ml) Med 05/09/19 16:45 Ordered Sodium Chloride 0.9% [Normal Saline] 1,000 ml IV ASDIRECTED Sodium Chloride 0.9% [Normal Saline] 1,000 ml Med 05/09/19 15:00 Active IV ASDIRECTED Sodium Chloride 0.9% [Saline Flush] Med 05/09/19 16:11 Active 10 ml FLUSH ASDIRECTED PRN Temazepam [Restoril] Med 05/09/19 16:35 Ordered 15 mg PO BEDTIME PRN Antiembolic Hose [OM.PC] Per Unit Routine Oth 05/09/19 16:38 Ordered Peripheral IV Insertion Adult [OM.PC] Routine Oth 05/09/19 16:11 Ordered Resuscitation Status Routine Resus Stat 05/09/19 16:35 Ordered Medication Orders Sodium Chloride (Normal Saline) 1,000 mls @ 250 mls/hr IV ASDIRECTED BEAU Stop: 05/09/19 18:59 Last Admin: 05/09/19 15:06 Dose: 250 mls/hr Potassium Chloride 10 meq/ (Premix) 50 mls @ 50 mls/hr IV Q1H BEAU Stop: 05/09/19 20:44 Sodium Chloride (Normal Saline) 1,000 mls @ 125 mls/hr IV ASDIRECTED BEAU Ondansetron HCl (Zofran) 4 mg IVPUSH Q4H PRN PRN Reason: Nausea/Vomiting Last Admin: 05/09/19 15:08 Dose: 4 mg Sodium Chloride (Saline Flush) 10 ml FLUSH ASDIRECTED PRN PRN Reason: Keep Vein Open Temazepam (Restoril) 15 mg PO BEDTIME PRN PRN Reason: Sleep Assessment/Plan Comment:: 05-09-19 Anthony Shirley PA-C Admitting 38 yo female to status under the medical management of Dr. Whipple, who was consulted at the time of admit. Initially evaluated today at [facility], she was seen last week at a different medical clinic but has continued to worsen. She gives a h/o rather sudden onset of abd pain, nausea and diarrhea nine days ago, with multiple diarrhea stools per day. She has been very nauseated, vomiting started yesterdayShe is weak and anorexic, not wanting oral intake. She has headache, and is very dehydrated by exam. She felt she was running a fever at home but did not check with a thermometer. She was afebrile in the clinic. She was brought to the clinic by her , and she and her are very worried and anxious. No recent travel or change in dietary habits. She is hypokalemic. K+ 3.0, WBC 5.8, CRP 11.9 Abdominal x-rays done, considering CT scan in am depending on condition. Stool tests ordered, UA pending also. No recent ATB therapy. Miriam ordered prn nausea. I did order a Clear Liquid diet but she says she is not sure she can even try to drink anything yet. Will change to npo should vomiting develop, has had no emesis today. - Mortality Measure Prognosis:: Good
[2019-05-09] MEDS: Potassium Chloride 10 MEQ in Premix Bag 1 BAG IV SCH ×4 (17:31→21:09)
[2019-05-09] MEDS: Atenolol 50 MG Tab PO SCH (19:22)
[2019-05-09] MEDS: Temazepam 15 MG Cap PO PRN (22:54)
[2019-05-10] MEDS: Sodium Chloride 0.9% 1,000 ML IV SCH ×2 (02:14→10:21)
[2019-05-10] MEDS: Levothyroxine 50 MCG Tab PO SCH (07:14)
[2019-05-10] MEDS ORDERED: Omeprazole 20 MG Cap.CR PO SCH (07:30)
[2019-05-10 08:04] LABS: CHLORIDE,CL 105 mmol/L (98-107)
[2019-05-10 08:35] LABS: SODIUM,NA 140 mmol/L (136-145)
[2019-05-10] MEDS: Ondansetron 4 MG/2 ML SDV IVPUSH PRN (08:58)
[2019-05-10] MEDS: Potassium Chloride 10 MEQ in Premix Bag 1 BAG IV SCH ×2 (11:49→13:00)
--- NOTE | 2019-05-10 14:36 | HP ---
HISTORY OF PRESENT ILLNESS: This 38-year-old female was seen in consultation by Dr. Torres for evaluation of abdominal pain, nausea, vomiting, and diarrhea. For the past week and a half, she has been having these issues. The nausea and vomiting were 2 days ago, but the pain and diarrhea have been throughout. Her had similar symptoms, but did get better. They are not aware of any food poisoning. She has not had any fever, sweats or chills. The diarrhea has been watery, but no blood. The emesis was one time and no blood was present. She was admitted yesterday for IV fluids and potassium supplement for hypokalemia. Other labs were reviewed and WBC has been normal yesterday and today. Abdominal x-ray was obtained. I have reviewed this and do not see any concerning findings. PHYSICAL EXAMINATION: GENERAL: Reveals a pleasant lady in no distress. VITAL SIGNS: Reviewed and within normal limits. She has been afebrile. ABDOMEN: Obese, soft, and minimal tenderness diffusely, but no localization. I do not feel any masses or hernias. PAST MEDICAL HISTORY: Reviewed. She has not had any previous abdominal surgeries. ASSESSMENT: 1. Abdominal pain. 2. Diarrhea, improved, nausea and vomiting resolved. PLAN: Findings reviewed with the patient and there are no surgical issues that I can see today. She has not had any diarrhea since yesterday and seems to be a significant improvement for her. She is still not hungry, however. I suspect she will feel better over the next day or two. If symptoms continue or worsen, a gallbladder ultrasound could be considered or CT scan of the abdomen obtained. ANI NGUYEN MD /[id number]
--- NOTE | 2019-05-10 17:28 | PCM.PN ---
- General Info Date of Service: 05/10/19 Admission Dx/Problem (Free Text): Admission Diagnosis/Problem Admission Diagnosis/Problem Abdominal pain Functional Status: Reports: Pain Controlled - Review of Systems General: Reports: Weakness, Appetite (decreased) HEENT: Reports: No Symptoms Pulmonary: Reports: No Symptoms Cardiovascular: Reports: No Symptoms Gastrointestinal: Reports: Decreased Appetite, Nausea Genitourinary: Reports: No Symptoms Musculoskeletal: Reports: No Symptoms Skin: Reports: No Symptoms Neurological: Reports: Weakness Psychiatric: Reports: No Symptoms - Patient Data Vitals - Most Recent: Last Vital Signs Temp 98.2 F 05/10/19 16:00 Pulse 85 05/10/19 16:00 Resp 18 05/10/19 16:00 BP 108/70 05/10/19 16:00 Pulse Ox 97 05/10/19 16:00 Weight - Most Recent: 243 lb 1.6 oz I&O - Last 24 Hours: Intake & Output 05/10/19 05/10/19 05/10/19 06:59 14:59 22:59 Intake Total 3501 1140 1330 Output Total 1000 1950 Balance 2501 -810 1330 Lab Results Last 24 Hours: Laboratory Results - last 24 hr 05/09/19 05/10/19 05/10/19 Range/Units 17:10 07:10 07:10 WBC 6.3 (4.0-10.2) K/uL RBC 3.15 L (3.77-5.09) M/uL Hgb 10.5 L D (11.7-15.5) g/dL Hct 31.7 L (34.0-46.0) % MCV 100.6 H (84.0-98.0) fL MCH 33.3 (28.2-33.3) pg MCHC 33.1 (31.7-36.0) g/dL RDW 12.1 (11.2-14.1) % Plt Count 259 (150-350) K/uL Neut % (Auto) 49.7 (45.0-80.0) % Lymph % (Auto) 33.8 (10.0-50.0) % [place] % (Auto) 14.2 H (2.0-14.0) % Eos % (Auto) 1.8 (0.0-5.0) % Baso % (Auto) 0.5 (0.0-2.0) % Neut # (Auto) 3.13 (1.40-7.00) K/uL Lymph # (Auto) 2.12 (0.50-3.50) K/uL [place] # (Auto) 0.89 (0.00-1.00) K/uL Eos # (Auto) 0.11 (0.00-0.50) K/uL Baso # (Auto) 0.03 (0.00-0.20) K/uL Sodium 140 (136-145) mmol/L Potassium 3.4 L (3.5-5.1) mmol/L Chloride 105 (98-107) mmol/L Carbon Dioxide 27.1 (21.0-32.0) mmol/L BUN 8 (7-18) mg/dL Creatinine 0.81 (0.51-1.17) mg/dL Est Cr Clr Drug Dosing 83.08 mL/min Estimated GFR (MDRD) > 60 mL/min Glucose 97 (74-106) mg/dL Calcium 8.5 (8.5-10.1) mg/dL Magnesium (1.8-2.4) mg/dL Total Bilirubin 0.2 (0.2-1.0) mg/dL AST 18 (15-37) U/L ALT 28 (12-78) U/L Alkaline Phosphatase 76 (46-116) IU/L C-Reactive Protein 7.3 H (<=0.9) mg/dL Total Protein 5.9 L (6.4-8.2) g/dL Albumin 2.5 L (3.4-5.0) g/dL Specimen Type Urincc Urine Color Yellow Urine Appearance Clear Urine pH 6.0 (5.0-9.0) Ur Specific [place] 1.010 (1.005-1.030) Urine Protein Negative (NEGATIVE) mg/dL Urine Glucose (UA) Negative (NEGATIVE) mg/dL Urine Ketones Trace H (NEGATIVE) mg/dL Urine Occult Blood Moderate H (NEGATIVE) Urine Nitrite Negative (NEGATIVE) Urine Bilirubin Negative (NEGATIVE) Urine Urobilinogen 0.2 (0.2-1.0) E.U./dL Ur Leukocyte Esterase Trace H (NEGATIVE) Urine RBC 5-10 H /HPF Urine WBC 10-20 H /HPF Ur Epithelial Cells Moderate H /LPF Urine Bacteria Many H (NONE TO FEW) /HPF 05/10/19 Range/Units 07:10 WBC (4.0-10.2) K/uL RBC (3.77-5.09) M/uL Hgb (11.7-15.5) g/dL Hct (34.0-46.0) % MCV (84.0-98.0) fL MCH (28.2-33.3) pg MCHC (31.7-36.0) g/dL RDW (11.2-14.1) % Plt Count (150-350) K/uL Neut % (Auto) (45.0-80.0) % Lymph % (Auto) (10.0-50.0) % [place] % (Auto) (2.0-14.0) % Eos % (Auto) (0.0-5.0) % Baso % (Auto) (0.0-2.0) % Neut # (Auto) (1.40-7.00) K/uL Lymph # (Auto) (0.50-3.50) K/uL [place] # (Auto) (0.00-1.00) K/uL Eos # (Auto) (0.00-0.50) K/uL Baso # (Auto) (0.00-0.20) K/uL Sodium (136-145) mmol/L Potassium (3.5-5.1) mmol/L Chloride (98-107) mmol/L Carbon Dioxide (21.0-32.0) mmol/L BUN (7-18) mg/dL Creatinine (0.51-1.17) mg/dL Est Cr Clr Drug Dosing mL/min Estimated GFR (MDRD) mL/min Glucose (74-106) mg/dL Calcium (8.5-10.1) mg/dL Magnesium 1.7 L (1.8-2.4) mg/dL Total Bilirubin (0.2-1.0) mg/dL AST (15-37) U/L ALT (12-78) U/L Alkaline Phosphatase (46-116) IU/L C-Reactive Protein (<=0.9) mg/dL Total Protein (6.4-8.2) g/dL Albumin (3.4-5.0) g/dL Specimen Type Urine Color Urine Appearance Urine pH (5.0-9.0) Ur Specific [place] (1.005-1.030) Urine Protein (NEGATIVE) mg/dL Urine Glucose (UA) (NEGATIVE) mg/dL Urine Ketones (NEGATIVE) mg/dL Urine Occult Blood (NEGATIVE) Urine Nitrite (NEGATIVE) Urine Bilirubin (NEGATIVE) Urine Urobilinogen (0.2-1.0) E.U./dL Ur Leukocyte Esterase (NEGATIVE) Urine RBC /HPF Urine WBC /HPF Ur Epithelial Cells /LPF Urine Bacteria (NONE TO FEW) /HPF Don Results Last 24 Hours: Microbiology 05/10/19 14:55 Stool Occult Blood (DON) - Final Stool / Feces NEGATIVE OCCULT BLOOD REFERENCE RANGE: NEGATIVE Med Orders - Current: Current Medications Acetaminophen (Tylenol) 650 mg PO Q4H PRN PRN Reason: Pain/Fever Atenolol (Tenormin) 100 mg PO BEDTIME BEAU Last Admin: 05/09/19 19:22 Dose: 100 mg Sodium Chloride (Normal Saline) 1,000 mls @ 125 mls/hr IV ASDIRECTED BEAU Last Admin: 05/10/19 10:21 Dose: 125 mls/hr Levothyroxine Sodium (Synthroid) 50 mcg PO ACBREAKFAST BEAU Last Admin: 05/10/19 07:14 Dose: 50 mcg Omeprazole (Omeprazole) 40 mg PO ACBREAKFAST BEAU Last Admin: 05/10/19 07:14 Dose: 40 mg Ondansetron HCl (Zofran) 4 mg IVPUSH Q4H PRN PRN Reason: Nausea/Vomiting Last Admin: 05/10/19 08:58 Dose: 4 mg Sodium Chloride (Saline Flush) 10 ml FLUSH ASDIRECTED PRN PRN Reason: Keep Vein Open Last Admin: 05/10/19 08:58 Dose: 10 ml Temazepam (Restoril) 15 mg PO BEDTIME PRN PRN Reason: Sleep Last Admin: 05/09/19 22:54 Dose: 15 mg Discontinued Medications Sodium Chloride (Normal Saline) 1,000 mls @ 250 mls/hr IV ASDIRECTED BEAU Stop: 05/09/19 18:59 Last Admin: 05/09/19 15:06 Dose: 250 mls/hr Potassium Chloride 10 meq/ (Premix) 50 mls @ 50 mls/hr IV Q1H BEAU Stop: 05/09/19 20:44 Last Admin: 05/09/19 21:09 Dose: 50 mls/hr Potassium Chloride 10 meq/ (Premix) 50 mls @ 50 mls/hr IV Q1H BEAU Stop: 05/10/19 13:44 Last Admin: 05/10/19 13:00 Dose: 25 mls/hr - Exam General: Alert, Cooperative HEENT: Pupils Equal, Pupils Reactive, Mucous Membr. Moist/[place] Neck: Trachea Midline, No JVD Lungs: Clear to Auscultation, Normal Respiratory Effort Cardiovascular: Regular Rate, Regular Rhythm GI/Abdominal Exam: Normal Bowel Sounds, Soft, No Distention, Tender (RUQ, LUQ, Epigastrium) (Female) Exam: Deferred Back Exam: Normal Inspection Extremities: Normal Inspection, Normal Range of Motion, Non-Tender Skin: Warm, Dry, Intact Neurological: No New Focal Deficit Psy/Mental Status: Alert, Normal Affect, Normal Mood - Problem List & Annotations (1) Abdominal pain SNOMED Code(s): 85249625 Code(s): R10.9 - UNSPECIFIED ABDOMINAL PAIN Status: Acute Priority: High Current Visit: Yes Onset Date: ~04/30/19 Qualifiers: Abdominal location: generalized Qualified Code(s): R10.84 - Generalized abdominal pain (2) Dehydration SNOMED Code(s): 68863217 Code(s): E86.0 - DEHYDRATION Status: Acute Priority: High Current Visit : Yes Annotation/Comment:: secondary to abdominal pain, N/V/D and anorexia (3) Diarrhea SNOMED Code(s): 44626354 Code(s): R19.7 - DIARRHEA, UNSPECIFIED Status: Acute Priority: High Current Visit: Yes Onset Date: ~04/30/19 Qualifiers: Diarrhea type: unspecified type Qualified Code(s): R19.7 - Diarrhea, unspecified Annotation/Comment:: multiple loose stools each day (4) Hypokalemia due to excessive gastrointestinal loss of potassium SNOMED Code(s): 41151855 Code(s): E87.6 - HYPOKALEMIA Status: Acute Priority: Medium Current Visit: Yes Onset Date: ~05/09/19 (5) Nausea & vomiting SNOMED Code(s): 02307830 Code(s): R11.2 - NAUSEA WITH VOMITING, UNSPECIFIED Status: Acute Priority : High Current Visit: Yes Onset Date: ~04/30/19 Qualifiers: Vomiting Intractability: unspecified Annotation/Comment:: Severe nausea started 9 days ago but vomiting just started yesterday. (6) Weakness SNOMED Code(s): 65954508 Code(s): R53.1 - WEAKNESS Status: Acute Priority: Medium Current Visit : Yes Annotation/Comment:: secondary to dehydration (7) Hyperglycemia SNOMED Code(s): 12356302 Code(s): R73.9 - HYPERGLYCEMIA, UNSPECIFIED Status: Acute Priority: Medium Current Visit: No Onset Date: 02/21/17 Annotation/Comment:: Glycosylated hemoglobin normal yesterday with the patient counseled on low-fat, low-cholesterol diet prior to discharge. Weight loss in moderation encouraged with initiation of exercise program once her cardiac status has been determined (8) Hypothyroidism SNOMED Code(s): 10916654 Code(s): E03.9 - HYPOTHYROIDISM, UNSPECIFIED Status: Acute Priority: Medium Current Visit: No Onset Date: 02/21/17 Qualifiers: Hypothyroidism type: acquired Qualified Code(s): E03.9 - Hypothyroidism, unspecified Annotation/Comment:: Mild TSH elevation. Synthroid supplementation initiated this morning with this be beneficial both for her anxiety depression disorder and obesity. TSH should be repeated in 4 weeks. Free T3 and free T4 to be conducted on this morning's blood specimen secondary to her tachycardia as above with send out laboratory. Vitamin B-12 level is normal with folic acid also a send out laboratory. (9) Hyperlipidemia SNOMED Code(s): 22892769 Code(s): E78.5 - HYPERLIPIDEMIA, UNSPECIFIED Status: Chronic Priority: Medium Current Visit: No Qualifiers: Hyperlipidemia type: unspecified Qualified Code(s): E78.5 - Hyperlipidemia , unspecified Annotation/Comment:: Not currently under therapy with lipid panel showing some moderate hyperlipidemia during recent hospitalization today. Continue initial trial with weight loss in moderation as discussed with consideration of statin therapy, if no improvement in 3 months with recommended repeat lipid panel at that time. Initiate statin therapy immediately, if Cardiolite scan is positive (10) Hypertension SNOMED Code(s): 84343512 Code(s): I10 - ESSENTIAL (PRIMARY) HYPERTENSION Status: Chronic Priority : Medium Current Visit: No Qualifiers: Hypertension type: essential hypertension Qualified Code(s): I10 - Essential (primary) hypertension Annotation/Comment:: Mild hypertensive response to exercise. Observe for now secondary to her baseline deconditioning and obesity (11) Mixed anxiety depressive disorder SNOMED Code(s): 318678558 Code(s): F41.8 - OTHER SPECIFIED ANXIETY DISORDERS Status: Chronic Priority: Medium Current Visit: No Annotation/Comment:: Stable by history with no current medical therapy. Continue to observe closely by her regular provider, Shane Abbott PA-C, at the [facility] in [place], (12) Osteoarthritis SNOMED Code(s): 820174795 Code(s): M19.90 - UNSPECIFIED OSTEOARTHRITIS, UNSPECIFIED SITE Status: Chronic Priority: Medium Current Visit: No Qualifiers: Osteoarthritis location: multiple joints Osteoarthritis type: primary Qualified Code(s): M15.0 - Primary generalized (osteo)arthritis Annotation/Comment:: Stable by history (13) Peptic reflux disease SNOMED Code(s): 631384262 Code(s): K21.9 - GASTRO-ESOPHAGEAL REFLUX DISEASE WITHOUT ESOPHAGITIS Status: Chronic Priority: Medium Current Visit: No Annotation/Comment:: Stable by history. Further GI workup, including possible EGD, depending on her clinical course and her cardiac status - Problem List Review Problem List Initiated/Reviewed/Updated: Yes - My Orders Last 24 Hours: My Active Orders 05/10/19 12:40 Notify Provider Consults [RC] ASDIRECTED Consult to Physician [CONS] Routine 05/10/19 13:45 Discontinue Telemetry Monitoring [Cardiac Monitoring Discontinue] [RC] ROUTINE 05/10/19 Dinner Full Liquid Diet [DIET] - Plan Plan:: 05-09-19 Anthony Shirley PA-C Admitting 38 yo female to status under the medical management of Dr. Whipple, who was consulted at the time of admit. Initially evaluated today at [facility] [place], she was seen last week at a different medical clinic but has continued to worsen. She gives a h/o rather sudden onset of abd pain, nausea and diarrhea nine days ago, with multiple diarrhea stools per day. She has been very nauseated, vomiting started yesterdayShe is weak and anorexic, not wanting oral intake. She has headache, and is very dehydrated by exam. She felt she was running a fever at home but did not check with a thermometer. She was afebrile in the clinic. She was brought to the clinic by her , and she and her are very worried and anxious. No recent travel or change in dietary habits. She is hypokalemic. K+ 3.0, WBC 5.8, CRP 11.9 Abdominal x-rays done, considering CT scan in am depending on condition. Stool tests ordered, UA pending also. No recent ATB therapy. Miriam ordered prn nausea. I did order a Clear Liquid diet but she says she is not sure she can even try to drink anything yet. Will change to npo should vomiting develop, has had no emesis today. 05/10/19 Sarabjit Arias MD Does feel a little bit better today. Less abdomenal pain. No diarrhea. Still nauseated. Labs noted and improving. Consult to surgery. K+ improving with replacement.
[2019-05-10] MEDS: NS + KCl 20mEq/L 1,000 ML IV SCH (18:14)
[2019-05-10] MEDS: Sodium Chloride 0.9% 10 ML Syringe FLUSH SCH (19:42)
[2019-05-10] MEDS: Atenolol 50 MG Tab PO SCH (19:43)
[2019-05-10] MEDS ORDERED: traZODone 50 MG Tab PO SCH (20:00)
[2019-05-10] MEDS: Aluminum Hydroxide/Magnesium Hydroxide/Simethicone Susp 30 ML Cup PO PRN (21:06)
[2019-05-11] MEDS: Temazepam 15 MG Cap PO PRN (01:12)
[2019-05-11] MEDS: Acetaminophen 325 MG Tab PO PRN ×2 (01:12→08:50)
[2019-05-11] MEDS: Aluminum Hydroxide/Magnesium Hydroxide/Simethicone Susp 30 ML Cup PO PRN ×2 (01:13→14:44)
[2019-05-11] MEDS: NS + KCl 20mEq/L 1,000 ML IV SCH (05:55)
[2019-05-11 07:58] LABS: CHLORIDE,CL 107 mmol/L (98-107); SODIUM,NA 141 mmol/L (136-145)
[2019-05-11] MEDS: Levothyroxine 50 MCG Tab PO SCH (08:44)
[2019-05-11 08:55] VITALS: BP 110/74
[2019-05-11] MEDS: Sodium Chloride 0.9% 10 ML Syringe FLUSH SCH (09:21)
--- NOTE | 2019-05-11 14:09 | PCM.PN ---
- General Info Date of Service: 05/11/19 Admission Dx/Problem (Free Text): Admission Diagnosis/Problem Admission Diagnosis/Problem Abdominal pain Functional Status: Reports: Pain Controlled, Tolerating Diet - Review of Systems General: Reports: No Symptoms HEENT: Reports: No Symptoms Pulmonary: Reports: No Symptoms Cardiovascular: Reports: No Symptoms Gastrointestinal: Reports: Diarrhea (last night) Genitourinary: Reports: No Symptoms Musculoskeletal: Reports: No Symptoms Skin: Reports: No Symptoms Neurological: Reports: No Symptoms Psychiatric: Reports: No Symptoms - Patient Data Vitals - Most Recent: Last Vital Signs Temp 97.4 F 05/11/19 08:00 Pulse 80 05/11/19 08:00 Resp 16 05/11/19 08:00 BP 110/74 05/11/19 08:00 Pulse Ox 99 05/11/19 08:00 Weight - Most Recent: 243 lb 1.589 oz I&O - Last 24 Hours: Intake & Output 05/10/19 05/11/19 05/11/19 22:59 06:59 14:59 Intake Total 1630 1572 460 Output Total 400 200 600 Balance 1230 1372 -140 Lab Results Last 24 Hours: Laboratory Results - last 24 hr 05/11/19 05/11/19 05/11/19 Range/Units 07:15 07:15 07:15 WBC 6.6 (4.0-10.2) K/uL RBC 3.30 L (3.77-5.09) M/uL Hgb 10.9 L (11.7-15.5) g/dL Hct 32.9 L (34.0-46.0) % MCV 99.7 H (84.0-98.0) fL MCH 33.0 (28.2-33.3) pg MCHC 33.1 (31.7-36.0) g/dL RDW 12.1 (11.2-14.1) % Plt Count 238 (150-350) K/uL Neut % (Auto) 54.2 (45.0-80.0) % Lymph % (Auto) 30.6 (10.0-50.0) % [place] % (Auto) 12.9 (2.0-14.0) % Eos % (Auto) 2.1 (0.0-5.0) % Baso % (Auto) 0.2 (0.0-2.0) % Neut # (Auto) 3.58 (1.40-7.00) K/uL Lymph # (Auto) 2.02 (0.50-3.50) K/uL [place] # (Auto) 0.85 (0.00-1.00) K/uL Eos # (Auto) 0.14 (0.00-0.50) K/uL Baso # (Auto) 0.01 (0.00-0.20) K/uL Sodium 141 (136-145) mmol/L Potassium 3.3 L (3.5-5.1) mmol/L Chloride 107 (98-107) mmol/L Carbon Dioxide 24.6 (21.0-32.0) mmol/L BUN 4 L (7-18) mg/dL Creatinine 0.76 (0.51-1.17) mg/dL Est Cr Clr Drug Dosing 88.54 mL/min Estimated GFR (MDRD) > 60 mL/min Glucose 94 (74-106) mg/dL Calcium 8.4 L (8.5-10.1) mg/dL Iron 39 L (50-175) ug/dL TIBC 190 L (250-450) ug/dL % Saturation 20.96249 Ferritin 110 (8-388) ng/mL Total Bilirubin 0.2 (0.2-1.0) mg/dL AST 20 (15-37) U/L ALT 33 (12-78) U/L Alkaline Phosphatase 75 (46-116) IU/L C-Reactive Protein 4.9 H (<=0.9) mg/dL Total Protein 5.8 L (6.4-8.2) g/dL Albumin 2.4 L (3.4-5.0) g/dL Vitamin B12 845 (193-986) pg/mL Folate (8.6-58.9) ng/mL 05/11/19 Range/Units 07:15 WBC (4.0-10.2) K/uL RBC (3.77-5.09) M/uL Hgb (11.7-15.5) g/dL Hct (34.0-46.0) % MCV (84.0-98.0) fL MCH (28.2-33.3) pg MCHC (31.7-36.0) g/dL RDW (11.2-14.1) % Plt Count (150-350) K/uL Neut % (Auto) (45.0-80.0) % Lymph % (Auto) (10.0-50.0) % [place] % (Auto) (2.0-14.0) % Eos % (Auto) (0.0-5.0) % Baso % (Auto) (0.0-2.0) % Neut # (Auto) (1.40-7.00) K/uL Lymph # (Auto) (0.50-3.50) K/uL [place] # (Auto) (0.00-1.00) K/uL Eos # (Auto) (0.00-0.50) K/uL Baso # (Auto) (0.00-0.20) K/uL Sodium (136-145) mmol/L Potassium (3.5-5.1) mmol/L Chloride (98-107) mmol/L Carbon Dioxide (21.0-32.0) mmol/L BUN (7-18) mg/dL Creatinine (0.51-1.17) mg/dL Est Cr Clr Drug Dosing mL/min Estimated GFR (MDRD) mL/min Glucose (74-106) mg/dL Calcium (8.5-10.1) mg/dL Iron (50-175) ug/dL TIBC (250-450) ug/dL % Saturation Ferritin (8-388) ng/mL Total Bilirubin (0.2-1.0) mg/dL AST (15-37) U/L ALT (12-78) U/L Alkaline Phosphatase (46-116) IU/L C-Reactive Protein (<=0.9) mg/dL Total Protein (6.4-8.2) g/dL Albumin (3.4-5.0) g/dL Vitamin B12 (193-986) pg/mL Folate 27.3 (8.6-58.9) ng/mL Don Results Last 24 Hours: Microbiology 05/10/19 14:55 Stool Occult Blood (DON) - Final Stool / Feces NEGATIVE OCCULT BLOOD REFERENCE RANGE: NEGATIVE Med Orders - Current: Current Medications Acetaminophen (Tylenol) 650 mg PO Q4H PRN PRN Reason: Pain/Fever Last Admin: 05/11/19 08:50 Dose: 650 mg Al Hydroxide/Mg Hydroxide (Mag-Al Plus) 30 ml PO Q4H PRN PRN Reason: GI upset Last Admin: 05/11/19 01:13 Dose: 30 ml Atenolol (Tenormin) 100 mg PO BEDTIME BEAU Last Admin: 05/10/19 19:43 Dose: 100 mg Potassium Chloride/Sodium Chloride (Normal Saline With 20 Meq Kcl) 1,000 mls @ 75 mls/hr IV ASDIRECTED BEAU Last Admin: 05/11/19 05:55 Dose: 75 mls/hr Levothyroxine Sodium (Synthroid) 50 mcg PO ACBREAKFAST BEAU Last Admin: 05/11/19 08:44 Dose: 50 mcg Ondansetron HCl (Zofran) 4 mg IVPUSH Q4H PRN PRN Reason: Nausea/Vomiting Last Admin: 05/10/19 08:58 Dose: 4 mg Sodium Chloride (Saline Flush) 10 ml FLUSH ASDIRECTED PRN PRN Reason: Keep Vein Open Last Admin: 05/10/19 08:58 Dose: 10 ml Sodium Chloride (Saline Flush) 10 ml FLUSH Q12HR BEAU Last Admin: 05/11/19 09:21 Dose: Not Given Temazepam (Restoril) 15 mg PO BEDTIME PRN PRN Reason: Sleep Last Admin: 05/11/19 01:12 Dose: 15 mg Trazodone HCl (Trazodone) 50 mg PO BEDTIME BEAU Last Admin: 05/10/19 21:57 Dose: 50 mg Discontinued Medications Sodium Chloride (Normal Saline) 1,000 mls @ 250 mls/hr IV ASDIRECTED BEAU Stop: 05/09/19 18:59 Last Admin: 05/09/19 15:06 Dose: 250 mls/hr Potassium Chloride 10 meq/ (Premix) 50 mls @ 50 mls/hr IV Q1H BEAU Stop: 05/09/19 20:44 Last Admin: 05/09/19 21:09 Dose: 50 mls/hr Sodium Chloride (Normal Saline) 1,000 mls @ 125 mls/hr IV ASDIRECTED BEAU Last Admin: 05/10/19 10:21 Dose: 125 mls/hr Potassium Chloride 10 meq/ (Premix) 50 mls @ 50 mls/hr IV Q1H BEAU Stop: 05/10/19 13:44 Last Admin: 05/10/19 13:00 Dose: 25 mls/hr Omeprazole (Omeprazole) 40 mg PO [facility] Last Admin: 05/10/19 07:14 Dose: 40 mg - Exam General: Alert, Cooperative, No Acute Distress HEENT: Mucous Membr. Moist/[place] Neck: Trachea Midline, No JVD Lungs: Clear to Auscultation, Normal Respiratory Effort Cardiovascular: Regular Rate, Regular Rhythm GI/Abdominal Exam: Normal Bowel Sounds, Soft, Tender (RUQ) (Female) Exam: Deferred Back Exam: Full Range of Motion Extremities: Normal Inspection, Non-Tender Skin: Warm, Dry, Intact Neurological: No New Focal Deficit Psy/Mental Status: Alert, Normal Affect, Normal Mood - Problem List & Annotations (1) Gastroenteritis, acute SNOMED Code(s): 67096419 Code(s): K52.9 - NONINFECTIVE GASTROENTERITIS AND COLITIS, UNSPECIFIED Status: Acute Priority: High Current Visit: Yes (2) Dehydration SNOMED Code(s): 88252334 Code(s): E86.0 - DEHYDRATION Status: Acute Priority: High Current Visit : Yes (3) Abdominal pain SNOMED Code(s): 02211190 Code(s): R10.9 - UNSPECIFIED ABDOMINAL PAIN Status: Acute Priority: High Current Visit: Yes Onset Date: ~04/30/19 Qualifiers: Abdominal location: generalized Qualified Code(s): R10.84 - Generalized abdominal pain (4) Low serum iron SNOMED Code(s): 846039879 Code(s): E61.1 - IRON DEFICIENCY Status: Acute Priority: Medium Current Visit: Yes (5) Diarrhea SNOMED Code(s): 65824953 Code(s): R19.7 - DIARRHEA, UNSPECIFIED Status: Acute Priority: High Current Visit: Yes Onset Date: ~04/30/19 Qualifiers: Diarrhea type: unspecified type Qualified Code(s): R19.7 - Diarrhea, unspecified Annotation/Comment:: multiple loose stools each day (6) Hypokalemia due to excessive gastrointestinal loss of potassium SNOMED Code(s): 96368346 Code(s): E87.6 - HYPOKALEMIA Status: Acute Priority: Medium Current Visit: Yes Onset Date: ~05/09/19 (7) Nausea & vomiting SNOMED Code(s): 08688382 Code(s): R11.2 - NAUSEA WITH VOMITING, UNSPECIFIED Status: Acute Priority : High Current Visit: Yes Onset Date: ~04/30/19 Qualifiers: Vomiting Intractability: unspecified Annotation/Comment:: Severe nausea started 9 days ago but vomiting just started yesterday. (8) Weakness SNOMED Code(s): 02344035 Code(s): R53.1 - WEAKNESS Status: Acute Priority: Medium Current Visit : Yes (9) Hyperglycemia SNOMED Code(s): 90372605 Code(s): R73.9 - HYPERGLYCEMIA, UNSPECIFIED Status: Acute Priority: Medium Current Visit: No Onset Date: 02/21/17 (10) Hypothyroidism SNOMED Code(s): 86489827 Code(s): E03.9 - HYPOTHYROIDISM, UNSPECIFIED Status: Acute Priority: Medium Current Visit: No Onset Date: 02/21/17 Qualifiers: Hypothyroidism type: acquired Qualified Code(s): E03.9 - Hypothyroidism, unspecified (11) Hyperlipidemia SNOMED Code(s): 56149567 Code(s): E78.5 - HYPERLIPIDEMIA, UNSPECIFIED Status: Chronic Priority: Medium Current Visit: No Qualifiers: Hyperlipidemia type: unspecified Qualified Code(s): E78.5 - Hyperlipidemia , unspecified Annotation/Comment:: (12) Hypertension SNOMED Code(s): 42430984 Code(s): I10 - ESSENTIAL (PRIMARY) HYPERTENSION Status: Chronic Priority : Medium Current Visit: No Qualifiers: Hypertension type: essential hypertension Qualified Code(s): I10 - Essential (primary) hypertension (13) Mixed anxiety depressive disorder SNOMED Code(s): 220248451 Code(s): F41.8 - OTHER SPECIFIED ANXIETY DISORDERS Status: Chronic Priority: Medium Current Visit: No (14) Osteoarthritis SNOMED Code(s): 014522277 Code(s): M19.90 - UNSPECIFIED OSTEOARTHRITIS, UNSPECIFIED SITE Status: Chronic Priority: Medium Current Visit: No Qualifiers: Osteoarthritis location: multiple joints Osteoarthritis type: primary Qualified Code(s): M15.0 - Primary generalized (osteo)arthritis Annotation/Comment:: Stable by history (15) Peptic reflux disease SNOMED Code(s): 109031816 Code(s): K21.9 - GASTRO-ESOPHAGEAL REFLUX DISEASE WITHOUT ESOPHAGITIS Status: Chronic Priority: Medium Current Visit: No - Problem List Review Problem List Initiated/Reviewed/Updated: Yes - My Orders Last 24 Hours: My Active Orders 05/10/19 13:45 Discontinue Telemetry Monitoring [Cardiac Monitoring Discontinue] [RC] ROUTINE 05/10/19 17:30 NS + KCl 20mEq/L [Normal Saline with 20 mEq KCl] 1,000 ml IV ASDIRECTED 05/10/19 20:00 Sodium Chloride 0.9% [Saline Flush] 10 ml FLUSH Q12HR traZODone 50 mg PO BEDTIME 05/10/19 20:49 Alum Hydrox/Mag Hydrox/Simeth [Mag-Al Plus] 30 ml PO Q4H PRN 05/10/19 Dinner Full Liquid Diet [DIET] 05/11/19 13:42 Ready for Discharge [RC] PER UNIT ROUTINE Discontinue Saline Lock [Peripheral IV Discontinue] [OM.PC] Routine - Plan Plan:: 05-09-19 Anthony Shirley PA-C Admitting 38 yo female to status under the medical management of Dr. Whipple, who was consulted at the time of admit. [place] [facility] [place] was seen last week at a different medical clinic but has continued to worsen. She gives a h/o rather sudden onset of abd pain, nausea and diarrhea nine days ago, with multiple diarrhea stools per day. She has been very nauseated, vomiting started yesterdayShe is weak and anorexic, not wanting oral intake. She has headache, and is very dehydrated by exam. She felt she was running a fever at home but did not check with a thermometer. She was afebrile in the clinic. She was brought to the clinic by her , and she and her are very worried and anxious. No recent travel or change in dietary habits. She is hypokalemic. K+ 3.0, WBC 5.8, CRP 11.9 Abdominal x-rays done, considering CT scan in am depending on condition. Stool tests ordered, UA pending also. No recent ATB therapy. Zofran ordered prn nausea. I did order a Clear Liquid diet but she says she is not sure she can even try to drink anything yet. Will change to npo should vomiting develop, has had no emesis today. 05/10/19 Sarabjit Arias MD Does feel a little bit better today. Less abdomenal pain. No diarrhea. Still nauseated. Labs noted and improving. Consult to surgery. K+ improving with replacement. 05/11/19 Sarabjit Arias MD She does feel better today. Ate a chicken breast for lunch. Some loose stools last night. Stool C&S pending. K+ stable but still slightly low. Abdomen slight tenderness RUQ. Discussed discharge plans. Try home today.
--- NOTE | 2019-05-11 14:20 | PCM.DCSUM1 ---
Discharge Summary - Hospital Course Diagnosis: Stroke: No - Discharge Data Discharge Date: 05/11/19 Discharge Disposition: Home, Self-Care 01 Condition: Good - Discharge Diagnosis/Problem(s) (1) Gastroenteritis, acute SNOMED Code(s): 18689135 ICD Code: K52.9 - NONINFECTIVE GASTROENTERITIS AND COLITIS, UNSPECIFIED Status: Acute Priority: High Current Visit: Yes (2) Dehydration SNOMED Code(s): 86744882 ICD Code: E86.0 - DEHYDRATION Status: Acute Priority: High Current Visit: Yes (3) Abdominal pain SNOMED Code(s): 23697452 ICD Code: R10.9 - UNSPECIFIED ABDOMINAL PAIN Status: Acute Priority: High Current Visit: Yes Onset Date: ~04/30/19 Qualifiers: Abdominal location: generalized Qualified Code(s): R10.84 - Generalized abdominal pain (4) Low serum iron SNOMED Code(s): 489984038 ICD Code: E61.1 - IRON DEFICIENCY Status: Acute Priority: Medium Current Visit: Yes (5) Diarrhea SNOMED Code(s): 60709630 ICD Code: R19.7 - DIARRHEA, UNSPECIFIED Status: Acute Priority: High Current Visit: Yes Onset Date: ~04/30/19 Problem Details: multiple loose stools each day Qualifiers: Diarrhea type: unspecified type Qualified Code(s): R19.7 - Diarrhea, unspecified (6) Hypokalemia due to excessive gastrointestinal loss of potassium SNOMED Code(s): 09251270 ICD Code: E87.6 - HYPOKALEMIA Status: Acute Priority: Medium Current Visit: Yes Onset Date: ~05/09/19 (7) Nausea & vomiting SNOMED Code(s): 70215671 ICD Code: R11.2 - NAUSEA WITH VOMITING, UNSPECIFIED Status: Acute Priority: High Current Visit: Yes Onset Date: ~04/30/19 Problem Details: Severe nausea started 9 days ago but vomiting just started yesterday. Qualifiers: Vomiting Intractability: unspecified (8) Weakness SNOMED Code(s): 73899725 ICD Code: R53.1 - WEAKNESS Status: Acute Priority: Medium Current Visit : Yes (9) Hyperglycemia SNOMED Code(s): 73995371 ICD Code: R73.9 - HYPERGLYCEMIA, UNSPECIFIED Status: Acute Priority: Medium Current Visit: No Onset Date: 02/21/17 (10) Hypothyroidism SNOMED Code(s): 53674167 ICD Code: E03.9 - HYPOTHYROIDISM, UNSPECIFIED Status: Acute Priority: Medium Current Visit: No Onset Date: 02/21/17 Qualifiers: Hypothyroidism type: acquired Qualified Code(s): E03.9 - Hypothyroidism, unspecified (11) Hyperlipidemia SNOMED Code(s): 69456498 ICD Code: E78.5 - HYPERLIPIDEMIA, UNSPECIFIED Status: Chronic Priority: Medium Current Visit: No Problem Details: Qualifiers: Hyperlipidemia type: unspecified Qualified Code(s): E78.5 - Hyperlipidemia , unspecified (12) Hypertension SNOMED Code(s): 46818571 ICD Code: I10 - ESSENTIAL (PRIMARY) HYPERTENSION Status: Chronic Priority : Medium Current Visit: No Qualifiers: Hypertension type: essential hypertension Qualified Code(s): I10 - Essential (primary) hypertension (13) Mixed anxiety depressive disorder SNOMED Code(s): 932954808 ICD Code: F41.8 - OTHER SPECIFIED ANXIETY DISORDERS Status: Chronic Priority: Medium Current Visit: No (14) Osteoarthritis SNOMED Code(s): 820080280 ICD Code: M19.90 - UNSPECIFIED OSTEOARTHRITIS, UNSPECIFIED SITE Status: Chronic Priority: Medium Current Visit: No Problem Details: Stable by history Qualifiers: Osteoarthritis location: multiple joints Osteoarthritis type: primary Qualified Code(s): M15.0 - Primary generalized (osteo)arthritis (15) Peptic reflux disease SNOMED Code(s): 486178207 ICD Code: K21.9 - GASTRO-ESOPHAGEAL REFLUX DISEASE WITHOUT ESOPHAGITIS Status: Chronic Priority: Medium Current Visit: No - Patient Summary/Data Consults: Consultations 05/10/19 12:40 Consult to Physician [CONS] Routine - Patient Instructions Diet: Regular Diet as Tolerated Activity: As Tolerated, No Strenuous Activities (for at least one week), Rest and Relax Today Driving: May Drive Today Showering/Bathing: May Shower Notify Provider of: Nausea and/or Vomiting Other/Special Instructions: Schedule an appointment with Evy at [facility] for next week to see Evy and have your blood (a potassium) checked. May return to work next week on Tuesday05/14/19 and work half days Tuesday, Tuesday, Tuesday. - Discharge Plan *PRESCRIPTION DRUG MONITORING PROGRAM REVIEWED*: Not Applicable *COPY OF PRESCRIPTION DRUG MONITORING REPORT IN PATIENT BASILIA: Not Applicable Prescriptions/Med Rec: Potassium Chloride 10 meq PO BID #60 tablet.er Home Medications: Home Meds Acetaminophen [Tylenol] 650 mg PO Q4H PRN #100 tablet 02/22/17 [Rx] Levothyroxine [Synthroid] 50 mcg PO ACBREAKFAST #60 tablet 02/22/17 [Rx] Lisinopril [Prinivil] 20 mg PO QPM tablet 02/22/17 [Rx] Aspirin [Halfprin] 1 tab PO DAILY 05/09/19 [History] Atenolol 100 mg PO BEDTIME 05/09/19 [History] Baclofen 10 mg PO TID PRN 05/09/19 [History] Chlorthalidone 0.5 mg PO Q2D 05/09/19 [History] Naproxen 1 tab PO BIDMEALS PRN 05/09/19 [History] Omeprazole 40 mg PO DAILY 05/09/19 [History] Pravastatin [Pravachol] 1 tab PO BEDTIME 05/09/19 [History] traZODone HCl [Trazodone HCl] 50 mg PO BEDTIME 05/09/19 [History] Alum Hydrox/Mag Hydrox/Simeth [Mag-Al Plus] 30 ml PO Q4H PRN cup 05/11/19 [Rx] Potassium Chloride 10 meq PO BID #60 tablet.er 05/11/19 [Rx] Oxygen Therapy Mode: Room Air Patient Handouts: Ondansetron injection, Hypokalemia, Potassium chloride injection Forms: Return to Work/Inpatient LLN - Discharge Summary/Plan Comment DC Time >30 min.: No - Patient Data Vitals - Most Recent: Last Vital Signs Temp 97.4 F 05/11/19 08:00 Pulse 80 05/11/19 08:00 Resp 16 05/11/19 08:00 BP 110/74 05/11/19 08:00 Pulse Ox 99 05/11/19 08:00 Weight - Most Recent: 243 lb 1.589 oz I&O - Last 24 hours: Intake & Output 05/10/19 05/11/19 05/11/19 22:59 06:59 14:59 Intake Total 1630 1572 460 Output Total 400 200 600 Balance 1230 1372 -140 Lab Results - Last 24 hrs: Laboratory Results - last 24 hr 05/11/19 05/11/19 05/11/19 Range/Units 07:15 07:15 07:15 WBC 6.6 (4.0-10.2) K/uL RBC 3.30 L (3.77-5.09) M/uL Hgb 10.9 L (11.7-15.5) g/dL Hct 32.9 L (34.0-46.0) % MCV 99.7 H (84.0-98.0) fL MCH 33.0 (28.2-33.3) pg MCHC 33.1 (31.7-36.0) g/dL RDW 12.1 (11.2-14.1) % Plt Count 238 (150-350) K/uL Neut % (Auto) 54.2 (45.0-80.0) % Lymph % (Auto) 30.6 (10.0-50.0) % Ray % (Auto) 12.9 (2.0-14.0) % Eos % (Auto) 2.1 (0.0-5.0) % Baso % (Auto) 0.2 (0.0-2.0) % Neut # (Auto) 3.58 (1.40-7.00) K/uL Lymph # (Auto) 2.02 (0.50-3.50) K/uL Ray # (Auto) 0.85 (0.00-1.00) K/uL Eos # (Auto) 0.14 (0.00-0.50) K/uL Baso # (Auto) 0.01 (0.00-0.20) K/uL Sodium 141 (136-145) mmol/L Potassium 3.3 L (3.5-5.1) mmol/L Chloride 107 (98-107) mmol/L Carbon Dioxide 24.6 (21.0-32.0) mmol/L BUN 4 L (7-18) mg/dL Creatinine 0.76 (0.51-1.17) mg/dL Est Cr Clr Drug Dosing 88.54 mL/min Estimated GFR (MDRD) > 60 mL/min Glucose 94 (74-106) mg/dL Calcium 8.4 L (8.5-10.1) mg/dL Iron 39 L (50-175) ug/dL TIBC 190 L (250-450) ug/dL % Saturation 20.01897 Ferritin 110 (8-388) ng/mL Total Bilirubin 0.2 (0.2-1.0) mg/dL AST 20 (15-37) U/L ALT 33 (12-78) U/L Alkaline Phosphatase 75 (46-116) IU/L C-Reactive Protein 4.9 H (<=0.9) mg/dL Total Protein 5.8 L (6.4-8.2) g/dL Albumin 2.4 L (3.4-5.0) g/dL Vitamin B12 845 (193-986) pg/mL Folate (8.6-58.9) ng/mL 05/11/19 Range/Units 07:15 WBC (4.0-10.2) K/uL RBC (3.77-5.09) M/uL Hgb (11.7-15.5) g/dL Hct (34.0-46.0) % MCV (84.0-98.0) fL MCH (28.2-33.3) pg MCHC (31.7-36.0) g/dL RDW (11.2-14.1) % Plt Count (150-350) K/uL Neut % (Auto) (45.0-80.0) % Lymph % (Auto) (10.0-50.0) % Ray % (Auto) (2.0-14.0) % Eos % (Auto) (0.0-5.0) % Baso % (Auto) (0.0-2.0) % Neut # (Auto) (1.40-7.00) K/uL Lymph # (Auto) (0.50-3.50) K/uL Ray # (Auto) (0.00-1.00) K/uL Eos # (Auto) (0.00-0.50) K/uL Baso # (Auto) (0.00-0.20) K/uL Sodium (136-145) mmol/L Potassium (3.5-5.1) mmol/L Chloride (98-107) mmol/L Carbon Dioxide (21.0-32.0) mmol/L BUN (7-18) mg/dL Creatinine (0.51-1.17) mg/dL Est Cr Clr Drug Dosing mL/min Estimated GFR (MDRD) mL/min Glucose (74-106) mg/dL Calcium (8.5-10.1) mg/dL Iron (50-175) ug/dL TIBC (250-450) ug/dL % Saturation Ferritin (8-388) ng/mL Total Bilirubin (0.2-1.0) mg/dL AST (15-37) U/L ALT (12-78) U/L Alkaline Phosphatase (46-116) IU/L C-Reactive Protein (<=0.9) mg/dL Total Protein (6.4-8.2) g/dL Albumin (3.4-5.0) g/dL Vitamin B12 (193-986) pg/mL Folate 27.3 (8.6-58.9) ng/mL KIM Results - Last 24 hrs: Microbiology 05/10/19 14:55 Stool Occult Blood (KIM) - Final Stool / Feces NEGATIVE OCCULT BLOOD REFERENCE RANGE: NEGATIVE Med Orders - Current: Current Medications Acetaminophen (Tylenol) 650 mg PO Q4H PRN PRN Reason: Pain/Fever Last Admin: 05/11/19 08:50 Dose: 650 mg Al Hydroxide/Mg Hydroxide (Mag-Al Plus) 30 ml PO Q4H PRN PRN Reason: GI upset Last Admin: 05/11/19 01:13 Dose: 30 ml Atenolol (Tenormin) 100 mg PO BEDTIME BEAU Last Admin: 05/10/19 19:43 Dose: 100 mg Potassium Chloride/Sodium Chloride (Normal Saline With 20 Meq Kcl) 1,000 mls @ 75 mls/hr IV ASDIRECTED [facility] Last Admin: 05/11/19 05:55 Dose: 75 mls/hr Levothyroxine Sodium (Synthroid) 50 mcg PO ACBREAKFAST BEAU Last Admin: 05/11/19 08:44 Dose: 50 mcg Ondansetron HCl (Zofran) 4 mg IVPUSH Q4H PRN PRN Reason: Nausea/Vomiting Last Admin: 05/10/19 08:58 Dose: 4 mg Sodium Chloride (Saline Flush) 10 ml FLUSH ASDIRECTED PRN PRN Reason: Keep Vein Open Last Admin: 05/10/19 08:58 Dose: 10 ml Sodium Chloride (Saline Flush) 10 ml FLUSH Q12HR [facility] Last Admin: 05/11/19 09:21 Dose: Not Given Temazepam (Restoril) 15 mg PO BEDTIME PRN PRN Reason: Sleep Last Admin: 05/11/19 01:12 Dose: 15 mg Trazodone HCl (Trazodone) 50 mg PO BEDTIME [facility] Last Admin: 05/10/19 21:57 Dose: 50 mg Discontinued Medications Sodium Chloride (Normal Saline) 1,000 mls @ 250 mls/hr IV ASDIRECTED [facility] Stop: 05/09/19 18:59 Last Admin: 05/09/19 15:06 Dose: 250 mls/hr Potassium Chloride 10 meq/ (Premix) 50 mls @ 50 mls/hr IV Q1H [facility] Stop: 05/09/19 20:44 Last Admin: 05/09/19 21:09 Dose: 50 mls/hr Sodium Chloride (Normal Saline) 1,000 mls @ 125 mls/hr IV ASDIRECTED [facility] Last Admin: 05/10/19 10:21 Dose: 125 mls/hr Potassium Chloride 10 meq/ (Premix) 50 mls @ 50 mls/hr IV Q1H [facility] Stop: 05/10/19 13:44 Last Admin: 05/10/19 13:00 Dose: 25 mls/hr Omeprazole (Omeprazole) 40 mg PO ACBREAKFAST [facility] Last Admin: 05/10/19 07:14 Dose: 40 mg
== END 2019-05-11 15:01 | disposition home or self-care (01) | DRG 392 ==
LOC: LL.ACU 14:21 → LL.MS 16:18
PROVIDERS: ADMIT Physician Assistant; ATTEND Family Medicine
DX: K52.9 Noninfective gastroenteritis and colitis, unspecified (principal); Z68.41 Body mass index [BMI] 40.0-44.9, adult; E86.0 Dehydration; E61.1 Iron deficiency; E87.6 Hypokalemia; R73.9 Hyperglycemia, unspecified; R63.0 Anorexia; E03.9 Hypothyroidism, unspecified; I10 Essential (primary) hypertension; F41.8 Other specified anxiety disorders; K21.9 Gastro-esophageal reflux disease without esophagitis; M15.0 Primary generalized (osteo)arthritis; E78.00 Pure hypercholesterolemia, unspecified; E66.9 Obesity, unspecified; Z88.5 Allergy status to narcotic agent; Z79.899 Other long term (current) drug therapy; Z79.82 Long term (current) use of aspirin
CPT/HCPCS: 36415; 74019; 80053; 81001; 82150; 82272; 82607; 82728; 82746; 83540; 83550; 83690; 83735; 85025; 86140; 87045; 87046; 87086; 87088; 87186; 87425; A9270-GY; J2405; J3480; J7030

== ENCOUNTER → 2019-08-06 | Outpatient (CLI) | payer OTHER | LOC: LL.DI 15:59 | PROVIDERS: ATTEND Physician Assistant | DX: M25.512 Pain in left shoulder (principal) | CPT/HCPCS: 73030-LT ==

== ENCOUNTER 2019-09-19 10:42 | Emergency (ER) | payer OTHER, SELFPAY ==
[2019-09-19 10:57] VITALS: BP 112/77; PULSE 65
[2019-09-19] MEDS ORDERED: Ketorolac 60 MG/2 ML SDV IM ONE (11:17)
--- NOTE | 2019-09-19 11:23 | EDM.PDOC ---
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 Complaint: heavy menstrual bleeding Time Seen by Provider: 09/19/19 10:45 Source of Information: Reports: Patient History Limitations: Reports: No Limitations - History of Present Illness INITIAL COMMENTS - FREE TEXT/NARRATIVE: Increased menstrual flow over past sevral days was seen in clinic yesterday for same negative Given Rx for OCP's to start but has not started them yet No fever Onset: Gradual Duration: Day(s):, Getting Worse Location: Reports: Pelvis Abdomen Pain Score (Numeric/FACES): 8 - Related Data Allergies Allergy/AdvReac Type Severity Reaction Status Date / Time Cephalosporins Allergy Other Verified 09/19/19 10:47 codeine Allergy racing Verified 09/19/19 10:47 [From Tylenol-Codeine #3] heart Quinolones Allergy Other Verified 09/19/19 10:47 Home Meds: Home Meds Levothyroxine [Synthroid] 50 mcg PO ACBREAKFAST #60 tablet 02/22/17 [Rx] Lisinopril [Prinivil] 20 mg PO QPM tablet 02/22/17 [Rx] Aspirin [Halfprin] 1 tab PO DAILY 05/09/19 [History] Chlorthalidone 0.5 mg PO Q2D 05/09/19 [History] Naproxen 1 tab PO BIDMEALS PRN 05/09/19 [History] Omeprazole 40 mg PO DAILY 05/09/19 [History] Pravastatin [Pravachol] 1 tab PO BEDTIME 05/09/19 [History] atenoloL [Atenolol] 100 mg PO BEDTIME 05/09/19 [History] traZODone HCl [Trazodone HCl] 50 mg PO BEDTIME 05/09/19 [History] Alum Hydrox/Mag Hydrox/Simeth [Mag-Al Plus] 30 ml PO Q4H PRN cup 05/11/19 [Rx] Acetaminophen [Tylenol Arthritis] 2 tab PO Q8HR PRN 09/19/19 [History] Past Medical History HEENT History: Reports: Allergic Rhinitis Cardiovascular History: Reports: High Cholesterol, Hypertension, Other (See Below) Other Cardiovascular History: Hyperlipidemia not currently under therapy Respiratory History: Reports: None Gastrointestinal History: Reports: None, GERD Genitourinary History: Reports: None SOFTWARE CLERK History: Reports: Dysfunctional Uterine Bleeding Other SOFTWARE CLERK History: Nulliparous, h/o Infertility by definition Musculoskeletal History: Reports: None, Arthritis, Back Pain, Chronic, Osteoarthritis Neurological History: Reports: None Psychiatric History: Reports: Anxiety, Depression, Other (See Below) Other Psychiatric History: Anxiety depression disorder not currently under therapy Endocrine/Metabolic History: Reports: Obesity/BMI 30+ Hematologic History: Reports: None Immunologic History: Reports: None Oncologic (Cancer) History: Reports: None Dermatologic History: Reports: None - Infectious Disease History Infectious Disease History: Reports: Chicken Pox - Past Surgical History Head Surgeries/Procedures: Reports: None HEENT Surgical History: Reports: Oral Surgery, Other (See Below) Other HEENT Surgeries/Procedures: [place] teeth extraction x4 at age 8 Cardiovascular Surgical History: Reports: None Respiratory Surgical History: Reports: None GI Surgical History: Reports: None Female Surgical History: Reports: None Endocrine Surgical History: Reports: None Neurological Surgical History: Reports: None Musculoskeletal Surgical History: Reports: None Oncologic Surgical History: Reports: None Dermatological Surgical History: Reports: None - Past Imaging History Past Imaging History: Reports: None. Denies: Cardiac Echo, Stress Testing Social & Family History - Family History HEENT: Reports: None Cardiac: Reports: Hypertension, Other (See Below) Other Cardiac Family History: Parents with hypertension GI: Reports: GERD, Other (See Below) Other GI Family History: Father with GERD : Reports: None, Dialysis, Renal Disease/Insufficiency OBGYN: Reports: None Musculoskeletal: Reports: None Neurological: Reports: CVA, Other (See Below) Other Neurological Family History: Mother with small CVA in her 50s Endocrine/Metabolic: Reports: Diabetes, type II, Hypothyroidism, Other (See Below) Other Endocrine/Metabolic Family History: Paternal grandmother with AODM, mother with hypothyroidism Hematologic: Reports: None Immunologic: Reports: None Dermatologic: Reports: None Oncologic: Reports: Lymphoma, Other (See Below) Other Oncologic Family History: Mother with lymphoma in her 60s - Tobacco Use Smoking Status *Q: Never Smoker - Caffeine Use Caffeine Use: Reports: Soda (One soda per day). 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) ED [facility] - Review of Systems Review Of Systems: See Below : Reports: Irregular Menses ED EXAM, RENAL/ - Physical Exam Exam: See Below Exam Limited By: No Limitations GI/Abdominal: Tender (Female) Exam: Deferred Back Exam: CVA Tenderness (L), CVA Tenderness (R) Course - Vital Signs Last Recorded V/S: Last Vital Signs Temp 36.7 C 09/19/19 10:53 Pulse 65 09/19/19 10:53 Resp 18 09/19/19 10:53 BP 112/77 09/19/19 10:53 Pulse Ox 100 09/19/19 10:53 - Orders/Labs/Meds Labs: Laboratory Tests 09/19/19 Range/Units 11:05 WBC 5.3 (4.0-10.2) K/uL RBC 4.04 (3.77-5.09) M/uL Hgb 13.0 (11.7-15.5) g/dL Hct 40.1 (34.0-46.0) % MCV 99.3 H (84.0-98.0) fL MCH 32.2 (28.2-33.3) pg MCHC 32.4 (31.7-36.0) g/dL RDW 12.5 (11.2-14.1) % Plt Count 270 D (150-350) K/uL Neut % (Auto) 62.2 (45.0-80.0) % Lymph % (Auto) 28.9 (10.0-50.0) % [place] % (Auto) 6.4 (2.0-14.0) % Eos % (Auto) 2.1 (0.0-5.0) % Baso % (Auto) 0.4 (0.0-2.0) % Neut # (Auto) 3.31 (1.40-7.00) K/uL Lymph # (Auto) 1.54 (0.50-3.50) K/uL [place] # (Auto) 0.34 (0.00-1.00) K/uL Eos # (Auto) 0.11 (0.00-0.50) K/uL Baso # (Auto) 0.02 (0.00-0.20) K/uL Meds: Medications Discontinued Medications Generic Name Dose Route Start Last Admin Trade Name Freq PRN Reason Stop Dose Admin Ketorolac Tromethamine 60 mg 09/19/19 11:17 Toradol IM 09/19/19 11:18 ONETIME ONE - Re-Assessments/Exams Free Text/Narrative Re-Assessment/Exam: 09/19/19 11:21 See lab 09/19/19 11:21 Pt given Toradol 60 mg IM in ER Departure - Departure Time of Disposition: 11:30 Disposition: Home, Self-Care 01 Clinical Impression: Heavy menstrual bleeding Qualifiers: Menorrahagia type: with irregular cycle Qualified Code(s): N92.1 - Excessive and frequent menstruation with irregular cycle - Discharge Information Instructions: Abnormal Uterine Bleeding, Menorrhagia, [id number], Dysmenorrhea, [id number], Dysfunctional Uterine Bleeding Referrals: Evy Shirley PA [Primary Care Provider] - Additional Instructions: Follow up in clinic Begin as RX as prescribed Sepsis Event Note - Evaluation Sepsis Screening Result: No Definite Risk - Focused Exam Vital Signs: Vital Signs Temp Pulse Resp BP Pulse Ox 09/19/19 10:53 36.7 C 65 18 112/77 100 Date Exam was Performed: 09/19/19 Time Exam was Performed: 11:18
== END 2019-09-19 11:47 | disposition home or self-care (01) ==
LOC: LL.ED 10:42
DX: N92.1 Excessive and frequent menstruation with irregular cycle (principal); Z88.5 Allergy status to narcotic agent; Z88.8 Allergy status to other drugs, medicaments and biological substances; Z79.82 Long term (current) use of aspirin; Z79.899 Other long term (current) drug therapy
CPT/HCPCS: 36415; 85025; 96372; 99284; J1885

== ENCOUNTER 2023-12-22 10:20 | Day surgery (SDC) | payer OTHER ==
[2023-12-22] MEDS ORDERED: Sodium Chloride 0.9% 10 ML Syringe FLUSH PRN (10:30)
[2023-12-22] MEDS: Lactated Ringers 1,000 ML IV SCH (11:23)
[2023-12-22] MEDS ORDERED: Midazolam 1 MG/ML 2 ML SDV ONE (11:49)
[2023-12-22] MEDS ORDERED: Propofol 200 MG/20 ML SDV ONE (11:49)
[2023-12-22 12:50] VITALS: BP 104/65; PULSE 76
== END 2023-12-22 13:00 | disposition home or self-care (01) ==
LOC: LL.SDS 10:20
PROVIDERS: ATTEND Surgery
DX: K57.30 Diverticulosis of large intestine without perforation or abscess without bleeding (principal); I10 Essential (primary) hypertension; K21.9 Gastro-esophageal reflux disease without esophagitis; E66.01 Morbid (severe) obesity due to excess calories; Z68.41 Body mass index [BMI] 40.0-44.9, adult; Z79.899 Other long term (current) drug therapy
CPT/HCPCS: 45378; J2250; J2704; J7120

== ENCOUNTER 2025-06-15 03:35 | Emergency (ER) | payer MEDICAID, OTHER ==
[2025-06-15 04:46] VITALS: PULSE 83
[2025-06-15 05:24] VITALS: BP 108/67
[2025-06-15] MEDS: Take Home: Acetaminophen/HYDROcodone 325-10 MG, 5 Tab Pack PO ONE (06:48)
== END 2025-06-15 07:00 | disposition home or self-care (01) ==
LOC: LL.ED 03:35
DX: S42.252A Displaced fracture of greater tuberosity of left humerus, initial encounter for closed fracture (principal); I10 Essential (primary) hypertension; K21.9 Gastro-esophageal reflux disease without esophagitis; E66.9 Obesity, unspecified; Z88.5 Allergy status to narcotic agent; Z88.8 Allergy status to other drugs, medicaments and biological substances; Z79.890 Hormone replacement therapy; Z79.899 Other long term (current) drug therapy; W18.30XA Fall on same level, unspecified, initial encounter
CPT/HCPCS: 73030-LT; 73200-LT; 96372; 99283; 99284; A9270-GY; J1171

== ENCOUNTER 2025-06-19 00:50 | Emergency (ER) | payer MEDICAID ==
[2025-06-19 01:00] VITALS: BP 113/76; PULSE 94
== END 2025-06-19 01:55 | disposition home or self-care (01) ==
LOC: LL.ED 00:50
DX: S42.202A Unspecified fracture of upper end of left humerus, initial encounter for closed fracture (principal); I10 Essential (primary) hypertension; K21.9 Gastro-esophageal reflux disease without esophagitis; Z88.5 Allergy status to narcotic agent; Z88.8 Allergy status to other drugs, medicaments and biological substances; Z79.899 Other long term (current) drug therapy; Z79.890 Hormone replacement therapy; Z79.82 Long term (current) use of aspirin; W22.8XXA Striking against or struck by other objects, initial encounter; Y93.89 Activity, other specified
CPT/HCPCS: 73030-LT; 99283